=== PATIENT | female | born 1945 | race Caucasian/White ===

== ENCOUNTER 2017-10-25 16:09 | Emergency (ER) | payer MEDICARE, SELFPAY ==
[2017-10-25 16:19] VITALS: BP 153/78; PULSE 77; RESP 18; TEMP 36.7
--- NOTE | 2017-10-25 18:05 | W.ED.GENAD ---
Discharge Plan Disposition Patient Disposition: HOME Condition: Stable Discharge Details Chief Complaint: Nk/Back Pain Clinical Impression: Left sided sciatica Primary Care Provider: Christelle Armijo ED Provider: Prashant Forbes Home Meds and New Rx's Prescriptions: New cyclobenzaprine 10 mg tablet 10 mg PO TID PRN (Reason: muscle spasm) Qty: 10 RF: 0 hydrocodone-acetaminophen 5-325 mg tablet 1 tab PO Q6H PRN (Reason: pain) Qty: 8 RF: 0 prednisone 20 mg tablet 40 mg PO DAILY Qty: 8 RF: 0 Continue albuterol sulfate 2.5 MG/3 ML solution for nebulization 2.5 mg Inhalation PRN RF: 0 calcium carbonate 600 MG tablet 1,200 mg PO DAILY RF: 0 multivitamin [Daily Multiple] 1 EACH tablet 1 ea PO DAILY RF: 0 acetaminophen [Tylenol Extra Strength] 500 mg Tablet 1,000 mg PO QID PRNRF: 0 baclofen 10 mg Tablet 10 mg PO TID PRNRF: 0 calcium carbonate-vitamin D3 [Calcium 600 with Vitamin D3] 600 mg(1,500mg) -400 unit Capsule 2 tab PO DAILY RF: 0 Discharge Instructions Instructions: Sciatica (ED) Additional Instructions: Feel free to return to the emergency department for new or worsening symptoms otherwise perform activities as tolerated by discomfort and follow-up with your primary care provider in the next 5 days. If you have any fever, saddle anesthesia, inability to move extremity, or severe worsening of symptoms feel free to return for reassessment as well. Referrals: Christelle Armijo MD [Primary Care Provider] - 5 days (Follow-up with your primary care provider in 5 days for reassessment) Medical Decision Making MDM Narrative Medical decision making narrative: Patient presenting to the emergency department for chief complaint of back pain. Patient states previous pelvic fracture with injury years ago that aggravated her sciatica and that she intermittently gets sciatica. Patient states over the last 2 weeks she has had intermittent back pain but over the last 24 hours it has been significant and persistent not going away which it normally does after she takes her baclofen and acetaminophen. Physical exam shows positive right leg straight leg raise but patient states mostly sciatica running down the left leg. Exam is otherwise unremarkable for saddle anesthesia, loss of reflexes, patient afebrile, no change in bowel or bladder function. I do not feel that this is any signs of emergent back pain but patient's aggravation of her sciatica. Given that she has already been using baclofen and acetaminophen with no relief I did discuss with patient risk versus benefit of steroid burst, switching baclofen to Flexeril to see if that is more beneficial, and a limited prescription of narcotic pain medication. Patient agreed to these prescriptions and states clear understanding of risks versus benefit of these and recommendation for her to follow-up with her primary care provider in 5 days given that that would be the end of the steroid taper to see if she needs any further assistance. Patient encouraged to return for any new worsening symptoms which were thoroughly discussed. After discussion of diagnosis and plan of care patient states no further needs questions or concerns at this time and is agreement with plan. HPI - General Adult General Date/Time Provider Initiated Documentation: 10/25/17 17:02. Limitations to Documentation: no limitations. Information obtained by: patient. History of Present Illness 72 year old F presents to the emergency department with the chief complaint of Back pain, described as moderate, Quality is described as aching, and is localized to the back. Patient started experiencing this week(s) (2) and it has been intermittent. No relieving factors improve symptom(s), Movement worsens symptoms . Patient notes no other symptoms.. Patient did receive the following treatments prior to arrival, other Related Data Home Medications Medication Instructions Recorded Confirmed albuterol sulfate 2.5 mg INHALATION PRN 09/24/15 10/25/17 calcium carbonate 1,200 mg PO DAILY 09/24/15 10/25/17 multivitamin [Daily Multiple] 1 ea PO DAILY 08/22/17 10/25/17 acetaminophen [Tylenol Extra 1,000 mg PO QID PRN 10/25/17 10/25/17 Strength] baclofen 10 mg PO TID PRN 10/25/17 10/25/17 calcium carbonate-vitamin D3 2 tab PO DAILY 10/25/17 10/25/17 [Calcium 600 with Vitamin D3] Previous Rx's Medication Instructions Recorded cyclobenzaprine 10 mg PO TID PRN #10 tab 10/25/17 hydrocodone-acetaminophen 1 tab PO Q6H PRN #8 tab 10/25/17 prednisone 40 mg PO DAILY #8 tab 10/25/17 Allergies Allergy/AdvReac Type Severity Reaction Status Date / Time latex Allergy SKIN Unverified 10/25/17 16:25 REACTION CONTACT DERMATITIS aluminum [Aluminum] AdvReac Mild itchy Unverified 10/25/17 16:25 General Stated Complaint: Nk/Back Pain IMELDA: 3 Review of Systems Constitutional Denies body ache(s), Denies chills, Denies fever(s), Denies frequent falls and Denies weakness Cardiovascular Denies chest pain, Denies syncope and Denies dyspnea Respiratory Denies dyspnea Gastrointestinal Denies abdominal pain, Denies constipation, Denies fecal incontinence, Denies nausea and Denies vomiting Genitourinary Denies urinary incontinence Musculoskeletal Reports as per HPI Integumentary/Breasts Denies rash Neurologic Denies confusion, Denies syncope, Denies frequent falls, Denies sensory deficit and Denies weakness Psychiatric Denies confusion [facility] Medical History Adrenal mass, right Allergic rhinitis Asthma due to seasonal allergies Eczema Osteoarthritis of right knee Osteopenia Umbilical hernia Social History Smoking/Tobacco Use Status: Never Surgical History Colonoscopy - IV Sedation Ligation of fallopian tube Repair of umbilical hernia (10/13/15) Replacement of total knee joint Tonsillectomy and adenoidectomy Exam Const General: cooperative, no acute distress and not ill appearing Orientation: alert, awake and oriented x3 HENMT Mouth: moist mucous membranes Resp Effort & Inspection: normal respiratory effort, able to speak in complete sentences and no respiratory distress Cardio Rate: regular rate Rhythm: regular rhythm Back/Spine/Pelvis Back: no CVA tenderness, No erythema, No warmth and No back tenderness Thoracic/Lumbar Spine: pain with thoraco-lumbar ROM, No paraspinal tenderness, thoraco-lumbar ROM limited, No thoraco-lumbar spasm and straight leg raise positive (right) Pelvis: no pain with anterior-posterior compression and no pain with lateral compression Sacroiliac joints: on the right nontender and by passive hyperextension of lower ext and on the left nontender Sacrum: no tenderness Coccyx: no tenderness Skin General skin exam: no rashes or lesions noted Neuro General: alert, awake, oriented x3, moves all extremities and no focal motor deficits Sensory Exam: no sensory deficits noted DTR's: Rt Patellar: 1+, Lt Patellar: 1+, Rt Ankle: 1+ and Lt Ankle: 1+ Course Vital Signs Temperature 36.7 C 10/25/17 16:19 Pulse 77 10/25/17 16:19 Respiratory Rate 18 10/25/17 16:19 Blood Pressure 153/78 H 10/25/17 16:19 Temperature 36.7 C 10/25/17 16:19 Pulse 77 10/25/17 16:19 Respiratory Rate 18 10/25/17 16:19 Blood Pressure 153/78 H 10/25/17 16:19
--- NOTE | 2017-10-25 18:09 | ED.GENADUL_ITS ---
Discharge Plan Disposition Patient Disposition: HOME Condition: Stable Discharge Details Chief Complaint: Nk/Back Pain Clinical Impression: Left sided sciatica Primary Care Provider: Christelle Armijo ED Provider: Prashant Forbes Home Meds and New Rx's Prescriptions: New cyclobenzaprine 10 mg tablet 10 mg PO TID PRN (Reason: muscle spasm) Qty: 10 RF: 0 hydrocodone-acetaminophen 5-325 mg tablet 1 tab PO Q6H PRN (Reason: pain) Qty: 8 RF: 0 prednisone 20 mg tablet 40 mg PO DAILY Qty: 8 RF: 0 Continue albuterol sulfate 2.5 MG/3 ML solution for nebulization 2.5 mg Inhalation PRN RF: 0 calcium carbonate 600 MG tablet 1,200 mg PO DAILY RF: 0 multivitamin [Daily Multiple] 1 EACH tablet 1 ea PO DAILY RF: 0 acetaminophen [Tylenol Extra Strength] 500 mg Tablet 1,000 mg PO QID PRNRF: 0 baclofen 10 mg Tablet 10 mg PO TID PRNRF: 0 calcium carbonate-vitamin D3 [Calcium 600 with Vitamin D3] 600 mg(1,500mg) - 400 unit Capsule 2 tab PO DAILY RF: 0 Discharge Instructions Instructions: Sciatica (ED) Additional Instructions: Feel free to return to the emergency department for new or worsening symptoms otherwise perform activities as tolerated by discomfort and follow-up with your primary care provider in the next 5 days. If you have any fever, saddle anesthesia, inability to move extremity, or severe worsening of symptoms feel free to return for reassessment as well. Referrals: Christelle Armijo MD [Primary Care Provider] - 5 days (Follow-up with your primary care provider in 5 days for reassessment) Medical Decision Making MDM Narrative Medical decision making narrative: Patient presenting to the emergency department for chief complaint of back pain. Patient states previous pelvic fracture with injury years ago that aggravated her sciatica and that she intermittently gets sciatica. Patient states over the last 2 weeks she has had intermittent back pain but over the last 24 hours it has been significant and persistent not going away which it normally does after she takes her baclofen and acetaminophen. Physical exam shows positive right leg straight leg raise but patient states mostly sciatica running down the left leg. Exam is otherwise unremarkable for saddle anesthesia, loss of reflexes, patient afebrile , no change in bowel or bladder function. I do not feel that this is any signs of emergent back pain but patient's aggravation of her sciatica. Given that she has already been using baclofen and acetaminophen with no relief I did discuss with patient risk versus benefit of steroid burst, switching baclofen to Flexeril to see if that is more beneficial, and a limited prescription of narcotic pain medication. Patient agreed to these prescriptions and states clear understanding of risks versus benefit of these and recommendation for her to follow-up with her primary care provider in 5 days given that that would be the end of the steroid taper to see if she needs any further assistance. Patient encouraged to return for any new worsening symptoms which were thoroughly discussed. After discussion of diagnosis and plan of care patient states no further needs questions or concerns at this time and is agreement with plan. HPI - General Adult General Date/Time Provider Initiated Documentation: 10/25/17 17:02 . Limitations to Documentation: no limitations . Information obtained by: patient . History of Present Illness 72 year old F presents to the emergency department with the chief complaint of Back pain, described as moderate, Quality is described as aching, and is localized to the back. Patient started experiencing this week(s) (2) and it has been intermittent. No relieving factors improve symptom(s), Movement worsens symptoms . Patient notes no other symptoms.. Patient did receive the following treatments prior to arrival, other Related Data Home Medications Medication Instructions Recorded Confirmed albuterol sulfate 2.5 mg INHALATION PRN 09/24/15 10/25/17 calcium carbonate 1,200 mg PO DAILY 09/24/15 10/25/17 multivitamin [Daily Multiple] 1 ea PO DAILY 08/22/17 10/25/17 acetaminophen [Tylenol Extra 1,000 mg PO QID PRN 10/25/17 10/25/17 Strength] baclofen 10 mg PO TID PRN 10/25/17 10/25/17 calcium carbonate-vitamin D3 2 tab PO DAILY 10/25/17 10/25/17 [Calcium 600 with Vitamin D3] Previous Rx's Medication Instructions Recorded cyclobenzaprine 10 mg PO TID PRN #10 tab 10/25/17 hydrocodone-acetaminophen 1 tab PO Q6H PRN #8 tab 10/25/17 prednisone 40 mg PO DAILY #8 tab 10/25/17 Allergies Allergy/AdvReac Type Severity Reaction Status Date / Time latex Allergy SKIN Unverified 10/25/17 16:25 REACTION CONTACT DERMATITIS aluminum [Aluminum] AdvReac Mild itchy Unverified 10/25/17 16:25 General Stated Complaint: Nk/Back Pain IMELDA: 3 Review of Systems Constitutional Denies body ache(s), Denies chills, Denies fever(s), Denies frequent falls and Denies weakness Cardiovascular Denies chest pain, Denies syncope and Denies dyspnea Respiratory Denies dyspnea Gastrointestinal Denies abdominal pain, Denies constipation, Denies fecal incontinence, Denies nausea and Denies vomiting Genitourinary Denies urinary incontinence Musculoskeletal Reports as per HPI Integumentary/Breasts Denies rash Neurologic Denies confusion, Denies syncope, Denies frequent falls, Denies sensory deficit and Denies weakness Psychiatric Denies confusion [facility] Medical History Adrenal mass, right Allergic rhinitis Asthma due to seasonal allergies Eczema Osteoarthritis of right knee Osteopenia Umbilical hernia Social History Smoking/Tobacco Use Status: Never Surgical History Colonoscopy - IV Sedation Ligation of fallopian tube Repair of umbilical hernia (10/13/15) Replacement of total knee joint Tonsillectomy and adenoidectomy Exam Const General: cooperative, no acute distress and not ill appearing Orientation: alert, awake and oriented x3 HENMT Mouth: moist mucous membranes Resp Effort & Inspection: normal respiratory effort, able to speak in complete sentences and no respiratory distress Cardio Rate: regular rate Rhythm: regular rhythm Back/Spine/Pelvis Back: no CVA tenderness, No erythema, No warmth and No back tenderness Thoracic/Lumbar Spine: pain with thoraco-lumbar ROM, No paraspinal tenderness, thoraco-lumbar ROM limited, No thoraco-lumbar spasm and straight leg raise positive (right) Pelvis: no pain with anterior-posterior compression and no pain with lateral compression Sacroiliac joints: on the right nontender and by passive hyperextension of lower ext and on the left nontender Sacrum: no tenderness Coccyx: no tenderness Skin General skin exam: no rashes or lesions noted Neuro General: alert, awake, oriented x3, moves all extremities and no focal motor deficits Sensory Exam: no sensory deficits noted DTR's: Rt Patellar: 1+, Lt Patellar: 1+, Rt Ankle: 1+ and Lt Ankle: 1+ Course Vital Signs Temperature 36.7 C 10/25/17 16:19 Pulse 77 10/25/17 16:19 Respiratory Rate 18 10/25/17 16:19 Blood Pressure 153/78 H 10/25/17 16:19 Temperature 36.7 C 10/25/17 16:19 Pulse 77 10/25/17 16:19 Respiratory Rate 18 10/25/17 16:19 Blood Pressure 153/78 H 10/25/17 16:19
[2017-10-25] MEDS: predniSONE 20 MG TAB 40 MG PO (18:23)
[2017-10-25] MEDS: HYDROcodone 5/Acetaminophen 325 TAB PO (18:23)
[2017-10-25] MEDS: Cyclobenzaprine 10 MG TAB PO (18:24)
[2017-10-25 18:46] VITALS: BP 149/81; PULSE 84; RESP 14; TEMP 37.1; O2SAT 97
== END 2017-10-25 18:45 | disposition home or self-care (01) ==
LOC: ER 19:12
PROVIDERS: Emergency Provider Nurse Practitioner Family
DX: M54.42 Lumbago with sciatica, left side (principal)
CPT/HCPCS: 99283; J7512

== ENCOUNTER 2017-11-06 01:09 | Outpatient (CLI) | payer MEDICARE, SELFPAY ==
--- NOTE | 2017-11-06 09:48 | DI.MRI_ITS ---
SYMPTOMS/DIAGNOSIS: ACUTE SCIATICA, M54.30, LOWER BACK PAIN MRI OF THE LUMBAR SPINE: Routine noncontrast examination. There are no priors for comparison. The conus medullaris has a normal appearance and location. At L5-S1, there is a small diffuse disc bulge. There are hypertrophic changes of the facets. No significant central spinal canal stenosis is seen. There is mild right and moderate left neural foraminal stenosis present. At L4-L5, there are hypertrophic changes of the facets and ligamentum flavum. There is a diffuse disc bulge. There also is appears to be a left paracentral disc herniation, which compresses the left L5 nerve root. There is moderately severe central spinal canal stenosis noted. There is moderate right neural foraminal stenosis and mild to moderate left neural foraminal stenosis. At L3-L4, there is disc desiccation and a mild diffuse disc bulge. There are hypertrophic changes of the facets and ligamentum flavum resulting in mild narrowing of the central spinal canal. There is mild bilateral neural foraminal stenosis. At L2-L3, there is a diffuse disc bulge. No focal disc herniation is seen. Hypertrophic changes are seen at the facets and ligamentum flavum. Minimal narrowing of the central spinal canal is noted. There is mild bilateral neural foraminal stenosis. At L1-L2, there is no focal disc herniation, central spinal canal or neural foraminal stenosis. Apart from the degenerative endplate signal changes, marrow signal is within normal limits. IMPRESSION: 1. Left paracentral disc herniation at L4-L5 causing left lateral recess stenosis and compressing the left L5 nerve root. 2. Multilevel degenerative changes of the lumbar spine. The findings are most marked at the L4-L5 disc level where there is moderately severe central spinal canal stenosis and bilateral neural foraminal stenosis. Please see the above discussion for complete details.
== END 2017-11-06 01:29 ==
PROVIDERS: PCP Family Medicine; Visit Provider Family Medicine
DX: M54.30 Sciatica, unspecified side (principal); M54.5 Low back pain; M51.16 Intervertebral disc disorders with radiculopathy, lumbar region; M47.816 Spondylosis without myelopathy or radiculopathy, lumbar region; M48.07 Spinal stenosis, lumbosacral region
CPT/HCPCS: 72148

== ENCOUNTER 2018-06-09 15:30 | Emergency (ER) | payer MEDICARE, SELFPAY ==
[2018-06-09 15:32] VITALS: BP 212/82; PULSE 84; RESP 18; TEMP 36.6; O2SAT 97
--- NOTE | 2018-06-09 15:40 | W.ED.GENAD ---
Discharge Plan Disposition Patient Disposition: HOME Condition: Improving Discharge Details Chief Complaint: DentalOral Clinical Impression: Odontalgia Primary Care Provider: Mila Palacio ED Provider: Humberto Bass Home Meds and New Rx's Prescriptions: New penicillin V potassium 500 mg tablet 500 mg PO TID 10 Days Qty: 30 RF: 0 Continued albuterol sulfate 2.5 MG/3 ML solution for nebulization 2.5 mg Inhalation PRN RF: 0 calcium carbonate 600 MG tablet 1,200 mg PO DAILY RF: 0 multivitamin [Daily Multiple] 1 EACH tablet 1 ea PO DAILY RF: 0 acetaminophen [Tylenol Extra Strength] 500 mg Tablet 1,000 mg PO QID PRNRF: 0 calcium carbonate-vitamin D3 [Calcium 600 with Vitamin D3] 600 mg(1,500mg) -400 unit Capsule 2 tab PO DAILY RF: 0 Discharge Instructions Instructions: Toothache (ED) Additional Instructions: Warm, salt water gargles to assist in resolution of your infection. Take penicillin as prescribed. Follow-up with Dr. Palacio for routine care. May use Tylenol and/or ibuprofen as needed for discomfort. Return for worsening or any other acute concern Medical Decision Making 73-year-old female with a few dental caries and history of dental infections who presents from home with a day and half of right lower premolar pain. Most consistent with developing apical infection. We will placed on a course of penicillin. Patient understands outpatient management as well as follow-up and return precautions. She is stable for discharge to home at this time. HPI General Mode of arrival: ambulatory. Date/Time Provider Initiated Documentation: 06/09/18 15:31. Limitations to Documentation: no limitations. Information obtained by: patient. History of Present Illness 73 year old F presents to the emergency department with the chief complaint of Right lower jaw pain times a day and a half, described as moderate, Quality is described as aching, dull and constant, and is localized to the face and right. Patient reports no radiation. Patient started experiencing this day(s) and it has been constant. No relieving factors improve symptom(s), No exacerbating factors reported . Patient notes denies fever/chills, loss of appetite and malaise. Patient did receive the following treatments prior to arrival, NSAID, cold therapy and heat therapy Related Data Home Medications Medication Instructions Recorded Confirmed albuterol sulfate 2.5 mg INHALATION PRN 09/24/15 06/09/18 calcium carbonate 1,200 mg PO DAILY 09/24/15 06/09/18 multivitamin [Daily Multiple] 1 ea PO DAILY 08/22/17 06/09/18 acetaminophen [Tylenol Extra 1,000 mg PO QID PRN 10/25/17 10/25/17 Strength] calcium carbonate-vitamin D3 2 tab PO DAILY 10/25/17 06/09/18 [Calcium 600 with Vitamin D3] penicillin V potassium 500 mg PO TID 10 Days #30 tab 06/09/18 Previous Rx's Medication Instructions Recorded penicillin V potassium 500 mg PO TID 10 Days #30 tab 06/09/18 Allergies Allergy/AdvReac Type Severity Reaction Status Date / Time latex Allergy SKIN Unverified 06/09/18 15:36 REACTION CONTACT DERMATITIS aluminum [Aluminum] AdvReac Mild itchy Unverified 06/09/18 15:36 General Stated Complaint: DentalOral IMELDA: 4 Review of Systems Review of Systems 6 systems reviewed and otherwise negative [facility] Medical History Adrenal mass, right Allergic rhinitis Asthma due to seasonal allergies Eczema Osteoarthritis of right knee Osteopenia Umbilical hernia Surgical History Colonoscopy - IV Sedation Ligation of fallopian tube Repair of umbilical hernia (10/13/15) Replacement of total knee joint Tonsillectomy and adenoidectomy Social History Smoking/Tobacco Use Status: Never Alcohol Intake: never Drug use: Never Do you feel safe at home: Yes Do you feel safe in your relationship?: Yes Exam Narrative Exam Narrative: GEN: awake, alert, oriented 3. Pleasant, well groomed, interactive. HEAD: Normocephalic, atraumatic ENT: Mucous membranes moist, oropharynx with small dental caries -tender right lower premolar, External ear exam unremarkable EYES: PERRL, EOMI NECK: Full ROM, no MILKA, no menigismus CHEST/RESP: Nontender, clear to auscultation bilateral, no wheeze/rhonchi/rales CARDIOVASCULAR: RRR, no murmur, rub gianna. 2+ Rad pulse bilateral EXT: Full ROM, no edema, no rash Neuro: Grossly normal neurologic exam, conversant, interactive. Psych: Speech fluent, thoughts congruent, affect normal Course Vital Signs Temperature 36.6 C 06/09/18 15:32 Pulse 84 06/09/18 15:32 Respiratory Rate 18 06/09/18 15:32 Blood Pressure 212/82 H 06/09/18 15:32 Pulse Oximetry 97 06/09/18 15:32 Temperature 36.6 C 06/09/18 15:32 Temperature Source Skin 06/09/18 15:32 Pulse 84 06/09/18 15:32 Respiratory Rate 18 06/09/18 15:32 Blood Pressure 212/82 H 06/09/18 15:32 Blood Pressure Position Sitting 06/09/18 15:32 Pulse Oximetry 97 06/09/18 15:32 Oxygen Delivery Method Room Air 06/09/18 15:32 Oxygen Flow Rate 0 06/09/18 15:32 Pain Level 10 06/09/18 15:32
--- NOTE | 2018-06-09 15:44 | ED.GENADUL_ITS ---
Discharge Plan Disposition Patient Disposition: HOME Condition: Improving Discharge Details Chief Complaint: DentalOral Clinical Impression: Odontalgia Primary Care Provider: Mila Palacio ED Provider: Humberto Bass Home Meds and New Rx's Prescriptions: New penicillin V potassium 500 mg tablet 500 mg PO TID 10 Days Qty: 30 RF: 0 Continued albuterol sulfate 2.5 MG/3 ML solution for nebulization 2.5 mg Inhalation PRN RF: 0 calcium carbonate 600 MG tablet 1,200 mg PO DAILY RF: 0 multivitamin [Daily Multiple] 1 EACH tablet 1 ea PO DAILY RF: 0 acetaminophen [Tylenol Extra Strength] 500 mg Tablet 1,000 mg PO QID PRNRF: 0 calcium carbonate-vitamin D3 [Calcium 600 with Vitamin D3] 600 mg(1,500mg) - 400 unit Capsule 2 tab PO DAILY RF: 0 Discharge Instructions Instructions: Toothache (ED) Additional Instructions: Warm, salt water gargles to assist in resolution of your infection. Take penicillin as prescribed. Follow-up with Dr. Palacio for routine care. May use Tylenol and/or ibuprofen as needed for discomfort. Return for worsening or any other acute concern Medical Decision Making 73-year-old female with a few dental caries and history of dental infections who presents from home with a day and half of right lower premolar pain. Most consistent with developing apical infection. We will placed on a course of penicillin. Patient understands outpatient management as well as follow-up and return precautions. She is stable for discharge to home at this time. HPI General Mode of arrival: ambulatory . Date/Time Provider Initiated Documentation: 06/09/18 15:31 . Limitations to Documentation: no limitations . Information obtained by: patient . History of Present Illness 73 year old F presents to the emergency department with the chief complaint of Right lower jaw pain times a day and a half, described as moderate, Quality is described as aching, dull and constant, and is localized to the face and right. Patient reports no radiation. Patient started experiencing this day(s) and it has been constant. No relieving factors improve symptom(s), No exacerbating factors reported . Patient notes denies fever/chills, loss of appetite and malaise. Patient did receive the following treatments prior to arrival, NSAID, cold therapy and heat therapy Related Data Home Medications Medication Instructions Recorded Confirmed albuterol sulfate 2.5 mg INHALATION PRN 09/24/15 06/09/18 calcium carbonate 1,200 mg PO DAILY 09/24/15 06/09/18 multivitamin [Daily Multiple] 1 ea PO DAILY 08/22/17 06/09/18 acetaminophen [Tylenol Extra 1,000 mg PO QID PRN 10/25/17 10/25/17 Strength] calcium carbonate-vitamin D3 2 tab PO DAILY 10/25/17 06/09/18 [Calcium 600 with Vitamin D3] penicillin V potassium 500 mg PO TID 10 Days #30 tab 06/09/18 Previous Rx's Medication Instructions Recorded penicillin V potassium 500 mg PO TID 10 Days #30 tab 06/09/18 Allergies Allergy/AdvReac Type Severity Reaction Status Date / Time latex Allergy SKIN Unverified 06/09/18 15:36 REACTION CONTACT DERMATITIS aluminum [Aluminum] AdvReac Mild itchy Unverified 06/09/18 15:36 General Stated Complaint: DentalOral IMELDA: 4 Review of Systems Review of Systems 6 systems reviewed and otherwise negative [facility] Medical History Adrenal mass, right Allergic rhinitis Asthma due to seasonal allergies Eczema Osteoarthritis of right knee Osteopenia Umbilical hernia Surgical History Colonoscopy - IV Sedation Ligation of fallopian tube Repair of umbilical hernia (10/13/15) Replacement of total knee joint Tonsillectomy and adenoidectomy Social History Smoking/Tobacco Use Status: Never Alcohol Intake: never Drug use: Never Do you feel safe at home: Yes Do you feel safe in your relationship?: Yes Exam Narrative Exam Narrative: GEN: awake, alert, oriented 3. Pleasant, well groomed, interactive. HEAD: Normocephalic, atraumatic ENT: Mucous membranes moist, oropharynx with small dental caries -tender right lower premolar, External ear exam unremarkable EYES: PERRL, EOMI NECK: Full ROM, no MILKA, no menigismus CHEST/RESP: Nontender, clear to auscultation bilateral, no wheeze/rhonchi/rales CARDIOVASCULAR: RRR, no murmur, rub gianna. 2+ Rad pulse bilateral EXT: Full ROM, no edema, no rash Neuro: Grossly normal neurologic exam, conversant, interactive. Psych: Speech fluent, thoughts congruent, affect normal Course Vital Signs Temperature 36.6 C 06/09/18 15:32 Pulse 84 06/09/18 15:32 Respiratory Rate 18 06/09/18 15:32 Blood Pressure 212/82 H 06/09/18 15:32 Pulse Oximetry 97 06/09/18 15:32 Temperature 36.6 C 06/09/18 15:32 Temperature Source Skin 06/09/18 15:32 Pulse 84 06/09/18 15:32 Respiratory Rate 18 06/09/18 15:32 Blood Pressure 212/82 H 06/09/18 15:32 Blood Pressure Position Sitting 06/09/18 15:32 Pulse Oximetry 97 06/09/18 15:32 Oxygen Delivery Method Room Air 06/09/18 15:32 Oxygen Flow Rate 0 06/09/18 15:32 Pain Level 10 06/09/18 15:32
[2018-06-09 15:53] VITALS: BP 191/82
== END 2018-06-09 15:53 | disposition home or self-care (01) ==
PROVIDERS: Emergency Provider Emergency Medicine; PCP Family Medicine
DX: K08.89 Other specified disorders of teeth and supporting structures (principal)
CPT/HCPCS: 99283

== ENCOUNTER 2018-06-21 06:50 | Day surgery (SDC) | payer MEDICARE, SELFPAY ==
--- NOTE | 2018-06-20 20:10 | POEE_ITS ---
History of Present Illness Chief Complaint: Progressive decreased vision, left eye Narrative: Patient is a 73-year-old lady with history of diminished visual acuity in both eyes at both distance and near. She has significant difficulty driving due to glare from headlights. On examination she was noted to have bi lateral nuclear cataracts with significant anterior and posterior cortical cataracts. Best corrected vision measured 20/50 in the left eye. The option of cataract surgery was offered to patient and she felt she was symptomatic enough that she wished to proceed. NOTE: The Chief Complaint, HPI, Past Medical History, Past Surgical History, Family History, Social History, Medications, and complete Ophthalmic Exam with detailed Assessment and Plan have already been documented in the patient's outpatient ophthalmic record and are not covered again in detail here. COUNT INCLUDES THE [facility] Social History Smoking/Tobacco Use Status: Never Alcohol Intake: never Drug use: Never Substance use type: does not use Do you feel safe at home: Yes Do you feel safe in your relationship?: Yes Meds Home Medications Medication Instructions Recorded Confirmed Type albuterol sulfate 2.5 mg INHALATION PRN 09/24/15 06/18/18 History calcium carbonate 1,200 mg PO DAILY 09/24/15 06/18/18 History multivitamin [Daily Multiple] 1 ea PO DAILY 08/22/17 06/18/18 History acetaminophen [Tylenol Extra 1,000 mg PO QID PRN 10/25/17 06/18/18 History Strength] calcium carbonate-vitamin D3 2 tab PO DAILY 10/25/17 06/18/18 History [Calcium 600 with Vitamin D3] lisinopril 10 mg PO DAILY 06/09/18 06/18/18 History Allergies Allergy/AdvReac Type Severity Reaction Status Date / Time latex Allergy SKIN Unverified 06/18/18 12:07 REACTION CONTACT DERMATITIS aluminum [Aluminum] AdvReac Mild itchy Unverified 06/18/18 12:07 Exam OCULAR EXAM:: Most recent ocular examination is significant for best corrected vision of 20/30 OD, 20/50 OS. Intraocular pressure is 16 OU. Extraocular motility is normal. Slit-lamp exam exam shows pupils dilating to 5 mm OU. 1+ nuclear 3+ anterior and posterior cortical cataracts OU. Dilated funduscopic examination shows disc cupping of 0.3 OU with normal vessels, macula, peripheral retina and vitreous. BRIGHTNESS ACUITY TESTING (BAT):: Brightness acuity testing of the left eye off is 20/50. Low is 20/80. Medium is 20/80. On the high setting is 20/100. Assessment and Plan (1) Nuclear sclerotic cataract of left eye: Current visit: No Status: Acute Assessment: Visually significant cataract, left eye. Plan: Cataract extraction with intraocular lens implantation, left eye (2) Cortical cataract of left eye: Current visit: No Status: Acute Assessment: Visually significant cataract, left eye. Plan: Cataract extraction with intraocular lens implantation, left eye Note: NOTE:: The details of the planned surgery, including the risks, indications,limitations,expectations,outcome and possible complications were explained to the patient. The patient understands the complications including, but not limited to: infection, hemorrhage, posterior dislocation of the lens or nuclear fragments which may require the intervention of a vitreoretinal surgeon, possible loss of the eye, or from anesthetic complications. The patient has been made aware of the option of not having surgery, that vision following surgery may not be equal to that prior to surgery, and that the planned surgery may not achieve the intended results. Following this discussion, which the patient appeared to understand, the patient wishes to proceed with cataract surgery with lens implantation of the affected eye to improve and maximize vision.
--- NOTE | 2018-06-20 21:10 | PDOC.DSDIS_ITS ---
Discharge Plan Disposition Patient Disposition: HOME Condition: Stable Discharge Details Attending Provider: Jose G Bolton Primary Care Provider: Mila Palacio Home Meds and New Rx's Prescriptions: No Action albuterol sulfate 2.5 MG/3 ML solution for nebulization 2.5 mg Inhalation PRN RF: 0 calcium carbonate 600 MG tablet 1,200 mg PO DAILY RF: 0 multivitamin [Daily Multiple] 1 EACH tablet 1 ea PO DAILY RF: 0 lisinopril 10 mg Tablet 10 mg PO DAILY RF: 0 acetaminophen [Tylenol Extra Strength] 500 mg Tablet 1,000 mg PO QID PRNRF: 0 calcium carbonate-vitamin D3 [Calcium 600 with Vitamin D3] 600 mg(1,500mg) - 400 unit Capsule 2 tab PO DAILY RF: 0 Discharge Instructions Stand Alone Forms: Post-op Topical Cataract, Winifred Walker (DSU) Discharge Orders Discharge Orders: Discharge Order (Routine); Ordered 06/21/18 Ordered By: Jose G Bolton DS: Diagnosis Discharge Diagnosis (1) Nuclear sclerotic cataract of left eye: Status: Resolved (2) Cortical cataract of left eye: Status: Resolved (3) Status post cataract extraction and insertion of intraocular lens of left eye: Status: Chronic
[2018-06-21 07:05] VITALS: BP 159/88; PULSE 74; RESP 16; TEMP 35.8; O2SAT 95
[2018-06-21] MEDS: Tetracaine 0.5% 4 ML BTL OS ×4 (07:20→08:17)
[2018-06-21] MEDS: Tropicam./Phenyleph. (1/2.5%) 5 ML BTL OS ×3 (07:20→07:31)
[2018-06-21] MEDS: Lidocaine 2% Jelly 6 ML SYR (08:24)
[2018-06-21] MEDS: Lidocaine 1% Pres-Free 5 ML VIAL (08:24)
[2018-06-21] MEDS: Balanced Salt Soln.-PLUS 500 ML BAG (08:24)
[2018-06-21] MEDS: Trypan Blue 0.06% 0.5 ML SYR (08:30)
[2018-06-21] MEDS: Povidone-Iodine Ophth 30 ML BTL (08:40)
[2018-06-21 08:45] VITALS: BP 165/79; PULSE 70; RESP 18; TEMP 35.5; O2SAT 96
--- NOTE | 2018-06-21 08:55 | ROE_ITS ---
Date of service: 06/21/18 Time of Service: 08:54 Operative Note PRE-OP DIAGNOSIS: Cataract, left eye, with poor red reflex POST-OP DIAGNOSIS: same PROCEDURE: Cataract extraction using phacoemulsification with intraocular lens implant, left eye, using capsular staining with Vision Blue SURGEON: Jose G Bolton ANESTHESIA: MAC (with local sub-tenon's anesthetic injection) COMPLICATIONS: None Patient was transported to: same day Patient's condition: stable Implants: Anselmo [employer] / [employer] Tecnis [id number] Indications: Progressive decreased vision due to cataract, left eye, with poor red reflex Procedure Description: CATARACT SURGERY OPERATIVE REPORT PREOPERATIVE DIAGNOSIS: 1. Nuclear/cortical cataract, left eye 2. Poor red reflex secondary to #1 POSTOPERATIVE DIAGNOSIS: Same OPERATION: 1. Cataract extraction using phacoemulsification with posterior chamber intraocular lens implant, left eye. 2. Capsular staining with Vision Blue IOL: IOL [employer] Assistant/Model: Anselmo [employer] Anselmo / MINNIE Tecnis [id number] IOL Power: + 13.50 diopters IOL Serial Number: [id number] Optic Diameter: 6.0 mm Haptic/Overall Diameter: 13.0 mm PHACO INFO: [employer] Vision System with OZil and Active Fluidics Cumulative Dispersed Energy (CDE): 6.46 seconds SURGEON: Jose G Bolton MD, CATHY ANESTHESIA: [facility] (MAC), with local sub-tenon's anesthetic infiltration COMPLICATIONS: None SPECIMENS: None INDICATIONS FOR PROCEDURE: The patient is a 73-year-old lady with history of myopia who has developed a symptomatic nuclear and cortical cataract of the left eye. She is significantly symptomatically she desires cataract surgery and attempt to improve and maximize her vision. PROCEDURE: The correct surgical eye was identified and marked as the left eye and the pupil was dilated in the preoperative area using mydriatics and cycloplegics. The dilated pupil size was 7.0 mm. Oral sedation was administered in the form of an Imprimis MKO Melt (midazolam 3mg/ketamine 25mg/ondansetron 2mg). The patient was brought to the operating room where cardiopulmonary monitoring was instituted and surgical time-out was performed, confirming the correct operative eye and IOL power. Topical anesthesia was administered and ophthalmic povidone-iodine 5% was instilled into the conjunctival fornices. Lidocaine gel was applied to the cornea and the thee-ocular area was prepped with Betadine 10% solution and draped in the usual sterile fashion for intraocular surgery, including an aperture drape. A Tegaderm transparent film dressing was cut in half and used to cover the lashes and lid margins. Care was taken to sequester the lashes and lid margins under the Tegaderm dressing. A lid speculum was placed between the lids of the operative eye and the Johnnie-Lisa operating microscope was maneuvered into position. Maral scissors were then used to make a conjunctival buttonhole approximately 6mm posterior to the limbus in the inferonasal quadrant. Blunt dissection was carried out to expose bare sclera, and a blunt-tipped sub-tenon?s anesthesia cannula was introduced and passed posteriorly along the globe where non- preserved plain lidocaine was injected into posterior sub-Tenon?s space. A sideport knife was used to make a paracentesis port at the 12:00 position. Air was injected into the anterior chamber, followed by Vision Blue, which was painted over the anterior capsule and then irrigated out using BSS. The anterior chamber was filled with Healon GV. A 2.4mm keratome knife was used to create a half-thickness groove at the limbus and then to construct a three-plane near-clear corneal tunnel extending 2.0mm into clear cornea at the 3:00 position. A flap was raised on the anterior capsule and capsulorhexis forceps were used to complete a continuous curvilinear capsulorhexis of 5.0 mm. Balanced salt solution was then used to perform cortical cleaving hydrodissection and nuclear hydrodelineation until the lens could be freely rotated within the capsular bag. The lens nucleus was then disassembled and removed within the capsular bag and iris plane using phacoemulsification. Residual cortical material was removed using the 45-degree angled silicone I/A tip with 0.3mm port. The posterior capsule was carefully polished to remove as much residual lens epithelial cells as safely possible. The capsular bag was then inflated and the anterior chamber deepened with viscoelastic. The lens implant described above was inserted into the capsular bag using the MINNIE Roggen Injector. A Kuglen hook was used to dial the IOL into position. Residual viscoelastic was then removed first from posterior to the IOL, then from the anterior chamber using the I/A handpiece. The lens implant was noted to center nicely within the capsular bag. The incisions were stromally hydrated, and the anterior chamber was reformed using BSS. Then 0.4cc of moxifloxacin 1.5mg/ml were injected into the capsular bag and anterior chamber. The incisions were checked with a Weck spear and found to be secure. Several drops of ophthalmic povidone-iodine 5% were then applied to the eye followed by two drops of Imprimis combination gatifloxacin/dexamethasone solution. The drapes were removed and a clear plastic protective eye shield was placed over the eye. The patient was then returned to Same Day Surgery in stable condition.
== END 2018-06-21 09:25 | disposition home or self-care (01) ==
LOC: SUR 06:52
PROVIDERS: PCP Family Medicine; Visit Provider Ophthalmology
PROC: (CPT 66982; principal; 2018-06-21 08:30)
DX: H25.812 Combined forms of age-related cataract, left eye (principal); H35.89 Other specified retinal disorders
CPT/HCPCS: 66982; V2632

== ENCOUNTER 2018-07-05 06:45 | Day surgery (SDC) | payer MEDICARE, SELFPAY ==
--- NOTE | 2018-07-04 08:03 | W.PIPPEYE ---
History of Present Illness Chief Complaint: Progressive decreased vision, right eye Narrative: The patient is a 73-year-old lady with history of aggressive decreased vision in both eyes at both distance and near. She has significant difficulty with driving due to glare from headlights. On examination she was noted to have bilateral nuclear and cortical cataracts with best corrected vision of 20/30 OD, 20/50 OS with significant glare disability. He underwent cataract surgery in the left eye on 06/21/2018. Postoperatively she has regained uncorrected vision of 20/20 in the left eye. She now presents for cataract surgery in the right eye. NOTE: The Chief Complaint, HPI, Past Medical History, Past Surgical History, Family History, Social History, Medications, and complete Ophthalmic Exam with detailed Assessment and Plan have already been documented in the patient's outpatient ophthalmic record and are not covered again in detail here. [facility] Medical History H/O laminectomy (Acute) Adrenal mass, right Allergic rhinitis Asthma due to seasonal allergies Eczema Osteoarthritis of right knee Osteopenia Umbilical hernia Surgical History Status post cataract extraction and insertion of intraocular lens of left eye (Chronic 06/21/18) Colonoscopy - IV Sedation Ligation of fallopian tube Repair of umbilical hernia (10/13/15) Replacement of total knee joint Tonsillectomy and adenoidectomy Social History Smoking/Tobacco Use Status: Never Alcohol Intake: never Drug use: Never Substance use type: does not use Do you feel safe at home: Yes Do you feel safe in your relationship?: Yes Meds Home Medications Medication Instructions Recorded Confirmed Type albuterol sulfate 2.5 mg INHALATION PRN 09/24/15 06/18/18 History calcium carbonate 1,200 mg PO DAILY 09/24/15 06/09/18 History multivitamin [Daily Multiple] 1 ea PO DAILY 08/22/17 06/21/18 History acetaminophen [Tylenol Extra 1,000 mg PO QID PRN 10/25/17 06/18/18 History Strength] calcium carbonate-vitamin D3 2 tab PO DAILY 10/25/17 06/21/18 History [Calcium 600 with Vitamin D3] lisinopril 10 mg PO DAILY 06/09/18 06/21/18 History Allergies Allergy/AdvReac Type Severity Reaction Status Date / Time latex Allergy SKIN Unverified 06/21/18 07:11 REACTION CONTACT DERMATITIS aluminum [Aluminum] AdvReac Mild itchy Unverified 06/21/18 07:11 Exam OCULAR EXAM:: Most recent ocular examination is significant for best corrected vision of 20/30 OD, uncorrected vision of 20/20 OS. Intraocular pressure is 16 OD, 15 OS. Extraocular motility is normal. Pupils equal, round, and reactive without afferent pupillary defect slit-lamp examination is significant for pupils dilating to 5 mm OU. 1+ nuclear with 3+ anterior and posterior cortical cataract in the right eye. Well-positioned PCIOL OS with clear posterior capsule. Dilated funduscopic examination shows disc cupping of 0.3 OU with good color. The optic nerves have good perfusion and normal color. The retinal vasculature is normal without significant tortuosity or abnormality. The maculas are normal in appearance with normal contour and foveal reflex appropriate for age. The peripheral retina and vitreous are normal. BRIGHTNESS ACUITY TESTING (BAT):: Brightness acuity testing of the right eye off is 20/30. Low is 20/30. Medium is 20/40. On the high setting is 20/60. Assessment and Plan (1) Nuclear sclerotic cataract of right eye: Current visit: No Status: Acute Assessment: Visually significant cataract, right eye. Plan: Cataract extraction with intraocular lens implantation, right eye (2) Cortical cataract of right eye: Current visit: No Status: Acute Assessment: Visually significant cataract, right eye. Plan: Cataract extraction with intraocular lens implantation, right eye Note: NOTE:: The details of the planned surgery, including the risks, indications,limitations,expectations,outcome and possible complications were explained to the patient. The patient understands the complications including, but not limited to: infection, hemorrhage, posterior dislocation of the lens or nuclear fragments which may require the intervention of a vitreoretinal surgeon, possible loss of the eye, or from anesthetic complications. The patient has been made aware of the option of not having surgery, that vision following surgery may not be equal to that prior to surgery, and that the planned surgery may not achieve the intended results. Following this discussion, which the patient appeared to understand, the patient wishes to proceed with cataract surgery with lens implantation of the affected eye to improve and maximize vision.
[2018-07-05] MEDS: Tetracaine 0.5% 4 ML BTL OD ×4 (07:00→08:18)
[2018-07-05] MEDS: Tropicam./Phenyleph. (1/2.5%) 5 ML BTL OD ×3 (07:00→07:15)
[2018-07-05 07:06] VITALS: BP 128/82; PULSE 84; RESP 18; TEMP 35.9; O2SAT 97
--- NOTE | 2018-07-05 07:19 | PDOC.DSDIS_ITS ---
Discharge Plan Disposition Patient Disposition: HOME Condition: Stable Discharge Details Attending Provider: Jose G Bolton Primary Care Provider: Mila Palacio Home Meds and New Rx's Prescriptions: No Action albuterol sulfate 2.5 MG/3 ML solution for nebulization 2.5 mg Inhalation PRN RF: 0 calcium carbonate 600 MG tablet 1,200 mg PO DAILY RF: 0 multivitamin [Daily Multiple] 1 EACH tablet 1 ea PO DAILY RF: 0 lisinopril 10 mg Tablet 10 mg PO DAILY RF: 0 acetaminophen [Tylenol Extra Strength] 500 mg Tablet 1,000 mg PO QID PRNRF: 0 calcium carbonate-vitamin D3 [Calcium 600 with Vitamin D3] 600 mg(1,500mg) - 400 unit Capsule 2 tab PO DAILY RF: 0 Discharge Instructions Stand Alone Forms: Post-op Topical Cataract, Winifred Walker ([facility]U) Discharge Orders Discharge Orders: Discharge Order (Routine); Ordered 07/05/18 Ordered By: Jose G Bolton DS: Diagnosis Discharge Diagnosis (1) Nuclear sclerotic cataract of right eye: Status: Resolved (2) Cortical cataract of right eye: Status: Resolved (3) Status post cataract extraction and insertion of intraocular lens of right eye: Status: Chronic
[2018-07-05] MEDS: Povidone-Iodine Ophth 30 ML BTL ×2 (08:18→08:28)
[2018-07-05] MEDS: Lidocaine 2% Jelly 6 ML SYR (08:18)
[2018-07-05] MEDS: Balanced Salt Soln.-PLUS 500 ML BAG (08:25)
[2018-07-05] MEDS: Lidocaine 1% Pres-Free 5 ML VIAL (08:26)
[2018-07-05] MEDS: Trypan Blue 0.06% 0.5 ML SYR (08:28)
--- NOTE | 2018-07-05 08:48 | W.PM.OP ---
Date of service: 07/05/18 Time of Service: 08:48 Operative Note PRE-OP DIAGNOSIS: Cataract, right eye, with poor red reflex PROCEDURE: Cataract extraction using phacoemulsification with intraocular lens implantation, right eye, using capsular staining with Vision Blue SURGEON: Jose G Bolton ANESTHESIA: MAC (with local sub-tenon's anesthetic injection) PATHOLOGY: none sent COMPLICATIONS: None Patient was transported to: same day Patient's condition: stable Implants: Anselmo and Anselmo / [employer] Tecnis [id number] Indications: Progressive visual loss due to cataract, right eye Procedure Description: CATARACT SURGERY OPERATIVE REPORT PREOPERATIVE DIAGNOSIS: 1. Nuclear/cortical cataract, right eye 2. Poor red reflex secondary to #1 POSTOPERATIVE DIAGNOSIS: Same OPERATION: 1. Cataract extraction using phacoemulsification with posterior chamber intraocular lens implant, right eye. 2. Capsular staining with Vision Blue IOL: IOL Bakery Decorator/Model: Anselmo & Anselmo / MINNIE Tecnis [id number] IOL Power: + 14.50 diopters IOL Serial Number: [id number] Optic Diameter: 6.0mm Haptic/Overall Diameter: 13.0mm PHACO INFO: Dawson Huddlebuyurion Vision System with OZil and Active Fluidics Cumulative Dispersed Energy (CDE): 4.56 seconds SURGEON: Jose G Bolton MD, CATHY ANESTHESIA: Monitored Anesthesia Care (MAC), with local sub-tenon's anesthetic infiltration COMPLICATIONS: None SPECIMENS: None INDICATIONS FOR PROCEDURE: Patient is a 73-year-old lady with history of high myopia who has developed significant bilateral nuclear and cortical cataracts. She has already undergone cataract surgery in the left eye on 06/21/2018 and is doing well postoperatively. She now presents for cataract surgery of the right eye. PROCEDURE: The correct surgical eye was identified and marked as the right eye and the pupil was dilated in the preoperative area using mydriatics and cycloplegics. The dilated pupil size was 7.0 mm. Oral sedation was administered in the form of an Imprimis MKO Melt (midazolam 3mg/ketamine 25mg/ondansetron 2mg). The patient was brought to the operating room where cardiopulmonary monitoring was instituted and surgical time-out was performed, confirming the correct operative eye and IOL power. Topical anesthesia was administered and ophthalmic povidone-iodine 5% was instilled into the conjunctival fornices. Lidocaine gel was applied to the cornea and the thee-ocular area was prepped with Betadine 10% solution and draped in the usual sterile fashion for intraocular surgery, including an aperture drape. A Tegaderm transparent film dressing was cut in half and used to cover the lashes and lid margins. Care was taken to sequester the lashes and lid margins under the Tegaderm dressing. A lid speculum was placed between the lids of the operative eye and the Johnnie-Lisa operating microscope was maneuvered into position. Maral scissors were then used to make a conjunctival buttonhole approximately 6mm posterior to the limbus in the inferonasal quadrant. Blunt dissection was carried out to expose bare sclera, and a blunt-tipped sub-tenon?s anesthesia cannula was introduced and passed posteriorly along the globe where non-preserved plain lidocaine was injected into posterior sub-Tenon?s space. A sideport knife was used to make a paracentesis port at the 7:00 position. Air was injected into the anterior chamber, followed by Vision Blue, which was painted over the anterior capsule and then irrigated out with BSS. The anterior chamber was filled with Healon GV. A 2.4mm keratome knife was used to create a half-thickness groove at the limbus and then to construct a three-plane near-clear corneal tunnel extending 2.0mm into clear cornea at the 10:00 position. A flap was raised on the anterior capsule and capsulorhexis forceps were used to complete a continuous curvilinear capsulorhexis of 4.8 mm. Balanced salt solution was then used to perform cortical cleaving hydrodissection and nuclear hydrodelineation until the lens could be freely rotated within the capsular bag. The lens nucleus was then disassembled and removed within the capsular bag and iris plane using phacoemulsification. Residual cortical material was removed using the I/A handpiece. The posterior capsule was carefully polished to remove as much residual lens epithelial cells as safely possible. The capsular bag was then inflated and the anterior chamber deepened with viscoelastic. The lens implant described above was inserted into the capsular bag using the MINNIE [place] Injector. A Kuglen hook was used to dial the IOL into position. Residual viscoelastic was then removed first from posterior to the IOL, then from the anterior chamber using the I/A handpiece. The underside of the anterior capsule was also vacuumed extensively. The lens implant was noted to center nicely within the capsular bag. The incisions were stromally hydrated, and the anterior chamber was reformed using BSS. Then 0.4cc of moxifloxacin 1.5mg/ml were injected into the capsular bag and anterior chamber. The incisions were checked with a Weck spear and found to be secure. Several drops of ophthalmic povidone-iodine 5% were then applied to the eye followed by two drops of Imprimis combination prednisolone/gatifloxacin/bromfenac solution. The drapes were removed and a clear plastic protective eye shield was placed over the eye. The patient was then returned to Same Day Surgery in stable condition.
--- NOTE | 2018-07-05 08:51 | ROE_ITS ---
Date of service: 07/05/18 Time of Service: 08:48 Operative Note PRE-OP DIAGNOSIS: Cataract, right eye, with poor red reflex PROCEDURE: Cataract extraction using phacoemulsification with intraocular lens implantation, right eye, using capsular staining with Vision Blue SURGEON: Jose G Bolton ANESTHESIA: MAC (with local sub-tenon's anesthetic injection) PATHOLOGY: none sent COMPLICATIONS: None Patient was transported to: same day Patient's condition: stable Implants: Anselmo and Anselmo / [employer] Tecnis [id number] Indications: Progressive visual loss due to cataract, right eye Procedure Description: CATARACT SURGERY OPERATIVE REPORT PREOPERATIVE DIAGNOSIS: 1. Nuclear/cortical cataract, right eye 2. Poor red reflex secondary to #1 POSTOPERATIVE DIAGNOSIS: Same OPERATION: 1. Cataract extraction using phacoemulsification with posterior chamber intraocular lens implant, right eye. 2. Capsular staining with Vision Blue IOL: IOL Patient Safety Manager/Model: Anselmo & Anselmo / MINNIE Tecnis [id number] IOL Power: + 14.50 diopters IOL Serial Number: [id number] Optic Diameter: 6.0mm Haptic/Overall Diameter: 13.0mm PHACO INFO: Dawson YellowBrckurion Vision System with OZil and Active Fluidics Cumulative Dispersed Energy (CDE): 4.56 seconds SURGEON: Jose G Bolton MD, CATHY ANESTHESIA: Monitored Anesthesia Care (MAC), with local sub-tenon's anesthetic infiltration COMPLICATIONS: None SPECIMENS: None INDICATIONS FOR PROCEDURE: Patient is a 73-year-old lady with history of high myopia who has developed significant bilateral nuclear and cortical cataracts. She has already undergone cataract surgery in the left eye on 06/21/2018 and is doing well postoperatively. She now presents for cataract surgery of the right eye. PROCEDURE: The correct surgical eye was identified and marked as the right eye and the pupil was dilated in the preoperative area using mydriatics and cycloplegics. The dilated pupil size was 7.0 mm. Oral sedation was administered in the form of an Imprimis MKO Melt (midazolam 3mg/ketamine 25mg/ondansetron 2mg). The patient was brought to the operating room where cardiopulmonary monitoring was instituted and surgical time-out was performed, confirming the correct operative eye and IOL power. Topical anesthesia was administered and ophthalmic povidone-iodine 5% was instilled into the conjunctival fornices. Lidocaine gel was applied to the cornea and the thee-ocular area was prepped with Betadine 10% solution and draped in the usual sterile fashion for intraocular surgery, including an aperture drape. A Tegaderm transparent film dressing was cut in half and used to cover the lashes and lid margins. Care was taken to sequester the lashes and lid margins under the Tegaderm dressing. A lid speculum was placed between the lids of the operative eye and the Johnnie-Lisa operating microscope was maneuvered into position. Maral scissors were then used to make a conjunctival buttonhole approximately 6mm posterior to the limbus in the inferonasal quadrant. Blunt dissection was carried out to expose bare sclera, and a blunt-tipped sub-tenon?s anesthesia cannula was introduced and passed posteriorly along the globe where non- preserved plain lidocaine was injected into posterior sub-Tenon?s space. A sideport knife was used to make a paracentesis port at the 7:00 position. Air was injected into the anterior chamber, followed by Vision Blue, which was painted over the anterior capsule and then irrigated out with BSS. The anterior chamber was filled with Healon GV. A 2.4mm keratome knife was used to create a half-thickness groove at the limbus and then to construct a three-plane near- clear corneal tunnel extending 2.0mm into clear cornea at the 10:00 position. A flap was raised on the anterior capsule and capsulorhexis forceps were used to complete a continuous curvilinear capsulorhexis of 4.8 mm. Balanced salt solution was then used to perform cortical cleaving hydrodissection and nuclear hydrodelineation until the lens could be freely rotated within the capsular bag. The lens nucleus was then disassembled and removed within the capsular bag and iris plane using phacoemulsification. Residual cortical material was removed using the I/A handpiece. The posterior capsule was carefully polished to remove as much residual lens epithelial cells as safely possible. The capsular bag was then inflated and the anterior chamber deepened with viscoelastic. The lens implant described above was inserted into the capsular bag using the MINNIE [place] Injector. A Kuglen hook was used to dial the IOL into position. Residual viscoelastic was then removed first from posterior to the IOL, then from the anterior chamber using the I/A handpiece. The underside of the anterior capsule was also vacuumed extensively. The lens implant was noted to center nicely within the capsular bag. The incisions were stromally hydrated, and the anterior chamber was reformed using BSS. Then 0.4cc of moxifloxacin 1.5mg/ml were injected into the capsular bag and anterior chamber. The incisions were checked with a Weck spear and found to be secure. Several drops of ophthalmic povidone-iodine 5% were then applied to the eye followed by two drops of Imprimis combination prednisolone/gatifloxacin/bromfenac solution. The drapes were removed and a clear plastic protective eye shield was placed over the eye. The patient was then returned to Same Day Surgery in stable condition.
[2018-07-05 09:12] VITALS: BP 119/83; PULSE 80; RESP 16; TEMP 36.3; O2SAT 94
== END 2018-07-05 09:25 | disposition home or self-care (01) ==
PROVIDERS: PCP Family Medicine; Visit Provider Ophthalmology
PROC: (CPT 66982; principal; 2018-07-05 08:30)
DX: H25.811 Combined forms of age-related cataract, right eye (principal); H35.89 Other specified retinal disorders; Z98.42 Cataract extraction status, left eye; Z96.1 Presence of intraocular lens
CPT/HCPCS: 66982; V2632

== ENCOUNTER 2019-11-22 08:45 | Emergency (ER) | payer MEDICARE, SELFPAY ==
[2019-11-22 08:49] VITALS: BP 130/75; PULSE 93; RESP 20; TEMP 36.5; O2SAT 96
--- NOTE | 2019-11-22 09:00 | DI.RAD_ITS ---
EXAM: XR PORTABLE CHEST AP CLINICAL HISTORY: Cough TECHNIQUE: 2D digital imaging was performed. COMPARISON: No exams were available for comparison FINDINGS: MEDIASTINUM: Normal. HEART: Normal. PULMONARY VASCULATURE: Normal. LUNGS: There are increased lung markings at the left cardiophrenic angle which may represent a develo ping infiltrate. The lungs are otherwise clear. PLEURAL SPACE: No pleural effusion or pneumothorax. BONE:Degenerative changes in the spine. OTHER FINDINGS:Normal. IMPRESSION: Lung markings in the left cardiophrenic angle which may represent developing infiltrate. DATA REPOSITORY: RADIATION DOSE DELIVERED:
--- NOTE | 2019-11-22 09:03 | ED.GENADUL_ITS ---
Discharge Plan Disposition Patient Disposition: HOME Condition: Stable Discharge Details Clinical Impression: Laryngitis, acute, Pneumonia Primary Care Provider: Mila Palacio ED Provider: Angelita Macias Home Meds and New Rx's Prescriptions: New azithromycin [Zithromax Z-Mich] 250 mg tablet See Rx Instructions .ROUTE .COMPLEX Qty: 6 RF: 0 albuterol sulfate 90 mcg/actuation HFA aerosol inhaler 2 puff inhalation QID PRN (Reason: shortness of breath or wheezing) Qty: 8 RF: 0 Continued albuterol sulfate 2.5 MG/3 ML solution for nebulization 2.5 mg Inhalation PRN RF: 0 calcium carbonate 600 MG tablet 1,200 mg PO DAILY RF: 0 multivitamin [Daily Multiple] 1 EACH tablet 1 ea PO DAILY RF: 0 lisinopril 10 mg Tablet 10 mg PO DAILY RF: 0 acetaminophen [Tylenol Extra Strength] 500 mg Tablet 1,000 mg PO QID PRNRF: 0 calcium carbonate-vitamin D3 [Calcium 600 with Vitamin D3] 600 mg(1,500mg) - 400 unit Capsule 2 tab PO DAILY RF: 0 Discharge Instructions Instructions: Laryngitis (ED), Pneumonia (ED) Additional Instructions: Follow up with primary care provider in 3-5 days. Return to ED sooner if any worsening or concerns. Increase oral fluids. Please take Tylenol or Ibuprofen with food every 4-6 hours as needed for pain and swelling. Gargle with warm salt water up to 3 times daily as needed. Take medications as directed. Return to the ED for any worsening shortness of breath, fever or concerns. Stand Alone Forms: Work Release Referrals: Mila Palacio [Primary Care Provider] - Discharge Data Discharge Date/Time-TO BE ENTERED AT DEPARTURE: 11/22/19 10:25 Medical Decision Making 74-year-old female presents the ED with chief complaint of sore throat and loss of voice. This has worsened over the last few days. She has a history of laryngitis. She reports being around cigarette smoke recently which is triggering her symptoms. She denies fever. She does endorse cough with productive yellow sputum. On initial exam she does have erythemic posterior pharynx, tonsils are 0 bilaterally she does have a history of tonsillectomy and adenoidectomy. She is a non-smoker. Rapid strep swab ordered, dexamethasone 10 mg p.o., Tylenol 650 mg p.o., and portable chest x-ray ordered to rule out pneumonia. Exam: XR Chest, 1 View Exam date and time: 11/22/2019 9:32 AM Age: 74 years old Clinical indication: Other: Cough TECHNIQUE: Imaging protocol: XR of the chest Views: 1 view. COMPARISON: No relevant prior studies available. FINDINGS: Lungs: Lungs are clear except for some increased markings at the left heart border. Pleural space: Unremarkable. No pleural effusion. No pneumothorax. Heart/Mediastinum: Heart size is within normal limits. Bones/joints: Mild curvature of the spine suggestive scoliosis. IMPRESSION: Increase in lung markings at the left cardiophrenic angle which could represent a early infiltrate. Thank you for allowing us to participate in the care of your patient. Dictated and Authenticated by: Ernestine Churchill MD Based on questionable x-ray possible early infiltrate will place patient on antibiotics. Discussed results with patient who verbalized understanding. Discussed home care and strict follow-up. HPI General Mode of arrival: ambulatory . Date/Time Provider Initiated Documentation: 11/22/19 08:48 . Limitations to Documentation: no limitations . Information obtained by: patient . HPI Narrative: 74-year-old female presents the ED with chief complaint of sore throat and loss of voice. This has worsened over the last few days. She has a history of laryngitis. She reports being around cigarette smoke recently which is triggering her symptoms. She denies fever. She does endorse cough with productive yellow sputum. On initial exam she does have erythemic posterior pharynx, tonsils are 0 bilaterally she does have a history of tonsillectomy and adenoidectomy. She is a non-smoker. Related Data Home Medications Medication Instructions Recorded Confirmed albuterol sulfate 2.5 mg INHALATION PRN 09/24/15 11/22/19 calcium carbonate 1,200 mg PO DAILY 09/24/15 11/22/19 multivitamin [Daily Multiple] 1 ea PO DAILY 08/22/17 11/22/19 acetaminophen [Tylenol Extra 1,000 mg PO QID PRN 10/25/17 11/22/19 Strength] calcium carbonate-vitamin D3 2 tab PO DAILY 10/25/17 11/22/19 [Calcium 600 with Vitamin D3] lisinopril 10 mg PO DAILY 06/09/18 11/22/19 albuterol sulfate 2 puff INHALATION QID PRN #8 g 11/22/19 azithromycin [Zithromax Z-Mich] See Rx Instructions .ROUTE 11/22/19 .COMPLEX #6 tab Previous Rx's Medication Instructions Recorded albuterol sulfate 2 puff INHALATION QID PRN #8 g 11/22/19 azithromycin [Zithromax Z-Mich] See Rx Instructions .ROUTE 11/22/19 .COMPLEX #6 tab Allergies Allergy/AdvReac Type Severity Reaction Status Date / Time latex Allergy SKIN Unverified 11/22/19 08:51 REACTION CONTACT DERMATITIS aluminum [Aluminum] AdvReac Mild itchy Unverified 11/22/19 08:51 General Stated Complaint: RespSymp IMELDA: 4 Review of Systems Narrative: Constitutional: Negative for weight loss, alert and oriented, well groomed, normal body habitus, appears comfortable. HEENT: Denies trauma, headaches, blurry vision, nasal discharge, positive sore throat and loss of voice. History of tonsillectomy and adenoidectomy. Chest: Denies chest pain, palpitations, irregular rhythm, hypertension. Respiratory: Denies Shortness of breath, hemoptysis. Positive cough with yellow productive sputum. GI: Denies abdominal pain, nausea, vomiting, diarrhea, constipation. : Denies dysuria, hematuria, flank pain, rectal bleeding. Neuro: Denies dizziness, blurry vision, weakness, syncope, headache or facial numbness. Hematologic: Denies easy bruising, intolerance to heat or cold, hair loss. [facility] Medical History Adrenal mass, right stable, followed with CT scan Allergic rhinitis Asthma due to seasonal allergies Eczema H/O laminectomy Osteoarthritis of right knee Osteopenia Umbilical hernia Surgical History Colonoscopy - IV Sedation 2010 Ligation of fallopian tube Repair of umbilical hernia (10/13/15) Replacement of total knee joint right 2006 Status post cataract extraction and insertion of intraocular lens of left eye (06/21/18) Status post cataract extraction and insertion of intraocular lens of right eye (07/05/18) Tonsillectomy and adenoidectomy Social History Smoking/Tobacco Use Status: Never Alcohol Intake: never Drug use: Never Substance use type: does not use Do you feel safe at home: Yes Do you feel safe in your relationship?: Yes Exam Narrative Exam Narrative: Constitutional: Alert and oriented x3. Appears stated age. Normal body habitus. Head: Normocephalic, no trauma. Eyes: Pupils PERRLA, Red reflex noted, EOM's intact. Eyelids symmetrical without lesions, discharge, or swelling. ENT: Bilateral TM's WNL, External ear normal to inspection, no mastoid TTP, swelling, or erythema, Nasal turbinates WNL, no nasal discharge. Normal dentition, Posterior pharynx erythemic, no exudate. Tonsils are 0 bilaterally he does have a history of tonsillectomy and adenoidectomy. Chest: RRR, Normal S1, S2, distal pulses intact. Resp: Lungs clear to auscultation bilaterally, no wheezes, rales, or rhonchi. Musculoskeletal: Normal gait, 5/5 strength to all four extremities. Skin: No suspicious rashes or lesions. Capillary refill less than 2 sec. Neurologic: Cranial nerves II-XII intact. Alert and oriented x 3. DTR's intact. Hematologic/Lymphatic: No ecchymosis, no lymphadenopathy. Course Vital Signs Vital signs: Vital Signs Temperature 36.5 C 11/22/19 08:49 Pulse 93 H 11/22/19 08:49 Respiratory Rate 20 11/22/19 08:49 Blood Pressure 130/75 11/22/19 08:49 Pulse Oximetry 96 11/22/19 08:49 Temperature 36.5 C 11/22/19 08:49 Temperature Source Skin 11/22/19 08:49 Pulse 93 H 11/22/19 08:49 Respiratory Rate 20 11/22/19 08:49 Respiratory Effort Non-Labored 11/22/19 08:56 Respiratory Depth Normal 11/22/19 08:56 Blood Pressure 130/75 11/22/19 08:49 Blood Pressure Position Sitting 11/22/19 08:49 Pulse Oximetry 96 11/22/19 08:49 Oxygen Delivery Method Room Air 11/22/19 08:49 Oxygen Flow Rate 0 11/22/19 08:49
[2019-11-22] MEDS: Dexamethasone 10 MG/ML VIAL PO (09:14)
[2019-11-22] MEDS: Acetaminophen 325 MG TAB 650 MG PO (09:14)
--- NOTE | 2019-11-27 16:03 | DI.VRAD_ITS ---
PROCEDURE INFORMATION: Exam: XR Chest, 1 View Exam date and time: 11/22/2019 9:32 AM Age: 74 years old Clinical indication: Other: Cough TECHNIQUE: Imaging protocol: XR of the chest Views: 1 view. COMPARISON: No relevant prior studies available. FINDINGS: Lungs: Lungs are clear except for some increased markings at the left heart border. Pleural space: Unremarkable. No pleural effusion. No pneumothorax. Heart/Mediastinum: Heart size is within normal limits. Bones/joints: Mild curvature of the spine suggestive scoliosis. IMPRESSION: Increase in lung markings at the left cardiophrenic angle which could represent a early infiltrate. Dictated and Authenticated by: Ernestine Churchill MD. Ordering:CARLOS A Goldstein MD
== END 2019-11-22 10:25 | disposition home or self-care (01) ==
PROVIDERS: Emergency Provider Registered Nurse Emergency; PCP Family Medicine
DX: J04.0 Acute laryngitis (principal); J18.9 Pneumonia, unspecified organism
CPT/HCPCS: 87880; 99283; 71045; 87081; 99284; J1100

== ENCOUNTER 2019-12-10 08:55 | Outpatient (REF) | payer MEDICARE, SELFPAY ==
[2019-12-10 22:45] LABS: ALT 41 U/L (14-59); AST 23 U/L (15-37); Albumin 3.4 g/dL (3.4-5.0); Alkaline Phosphatase 166 U/L (46-116); Anion Gap 5.5 mmol/L (3-11); BUN 26 mg/dL (7-18); Bilirubin, Total 0.3 mg/dL (0.2-1.0); CO2 30.5 mmol/L (21.0-32.0); CREATININE 0.76 mg/dL (0.55-1.02); Calcium 9.7 mg/dL (8.5-10.1); Calculated LDL 207 mg/dL (<100); Chloride 106 mmol/L (98-107); Cholesterol 290 mg/dL (<200); Glucose 97 mg/dL (74-106); HDL Cholesterol 49 mg/dL (40-60); Potassium 4.9 mmol/L (3.5-5.1); Sodium 142 mmol/L (136-145); Total Protein 7.3 g/dL (6.4-8.2); Triglyceride 172 mg/dL (<150)
== END 2019-12-10 09:15 ==
LOC: NCHCN 08:55
PROVIDERS: PCP Family Medicine; Visit Provider Family Medicine
DX: Z00.00 Encounter for general adult medical examination without abnormal findings (principal); I10 Essential (primary) hypertension
CPT/HCPCS: 80053; 80061

== ENCOUNTER 2019-12-19 18:21 | Emergency (ER) | payer OTHER, SELFPAY ==
[2019-12-19 18:29] VITALS: BP 114/73; PULSE 86; RESP 18; TEMP 36.6; O2SAT 99
--- NOTE | 2019-12-19 18:38 | ED.GENADUL_ITS ---
Discharge Plan Disposition Patient Disposition: HOME Condition: Stable Discharge Details Clinical Impression: Contusion of right hip Primary Care Provider: Mila Palacio ED Provider: Heri Barrera Home Meds and New Rx's Prescriptions: Continued multivitamin [Daily Multiple] 1 EACH tablet 1 ea PO DAILY RF: 0 lisinopril 10 mg Tablet 10 mg PO DAILY RF: 0 atorvastatin 20 mg Tablet 20 mg PO DAILY RF: 0 calcium carbonate-vitamin D3 [Calcium 600 with Vitamin D3] 600 mg(1,500mg) - 400 unit Capsule 2 tab PO DAILY RF: 0 albuterol sulfate 90 mcg/actuation HFA aerosol inhaler 2 puff inhalation QID PRN (Reason: shortness of breath or wheezing) Qty: 8 RF: 0 Discharge Instructions Instructions: Contusion in Adults (ED) Additional Instructions: At this time there is no evidence of fracture on your CT scan or x-rays. Please take Tylenol and Motrin as needed for pain. If you notice any worsening of your symptoms, or any new symptoms such as vomiting, diarrhea, fever, chills, shortness of breath, chest pain, numbness, weakness, or fainting , please return immediately to the emergency department for reevaluation. Please follow up with your primary care provider as soon as possible for reassessment and reev aluation. As always, it was a pleasure participating in your medical care today. Referrals: Mila Palacio [Primary Care Provider] - Medical Decision Making <Katelyn Wolfe DO - Last Filed: 12/19/19 20:02> 74-year-old female presents with right hip and thigh pain after fall down 3 steps hitting her right hip on the step today. Denies any other injuries. She has tenderness to palpation of her right lateral hip and right lateral proximal or mid thigh. She has no pain with range of motion of her right hip. She is neurovascularly intact. There is no evidence of trauma or cellulitis. Will refer for x-rays. She is declining any medication for pain. Pelvis x-ray notes heterogeneous appearance of the bones in the region of the pubic symphysis, underlying nondisplaced fracture is not excluded and recommend CT for further evaluation. Right femur x-ray negative. Will refer for pelvic CT. Case endorsed to Dr. Barrera to follow-up on CT imaging results and final disposition. Medical Records Medical records reviewed: Yes I reviewed the patient's medical records. <Heri Barrera, DO - Last Filed: 12/19/19 21:53> COMPARISON: CR XR PELVIS AP 12/19/2019 7:09 PM FINDINGS: Stomach and bowel: Distal colonic diverticulosis without diverticulitis. Vasculature: Atherosclerosis. Bones/joints: Degenerative changes in the lower lumbar spine. Degenerative changes in the pubic symphysis. No acute fracture or dislocation. Soft tissues: Unremarkable. IMPRESSION: No acute fracture or dislocation. Thank you for allowing us to participate in the care of your patient. Dictated and Authenticated by: Yosi Canchola MD Patient signed out to me pending CT imaging results. CT images negative for acute process or fracture. No evidence of occult fracture. Patient doing well does not want pain meds, ambulates without significant difficulty. Patient will be discharged home. No neurovascular deficits on reexamination. I have extensively reviewed the treatment plan and discharge instructions with the patient. I have addressed all patient concerns at this time. The patient was made aware of what symptoms to monitor for that would warrant a return to the emergency department. Discussed the plan with the patient, they demonstrate verbal understanding and agreement with our assessment and plan at this time. HPI <Katelyn Wolfe, DO - Last Filed: 12/19/19 20:02> General Mode of arrival: ambulatory . Date/Time Provider Initiated Documentation: 12/19/19 18:22 . Limitations to Documentation: no limitations . Information obtained by: patient . HPI Narrative: Patient is a 74-year-old female who presents with right hip and thigh pain after fall down 3 stairs today. 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 She denies head injury, chest pain, shortness of breath, abdominal pain, other extremity injury. She has not taken any medication for pain. Related Data Home Medications Medication Instructions Recorded Confirmed multivitamin [Daily Multiple] 1 ea PO DAILY 08/22/17 12/19/19 calcium carbonate-vitamin D3 2 tab PO DAILY 10/25/17 12/19/19 [Calcium 600 with Vitamin D3] lisinopril 10 mg PO DAILY 06/09/18 12/19/19 albuterol sulfate 2 puff INHALATION QID PRN #8 g 11/22/19 12/19/19 atorvastatin 20 mg PO DAILY 12/19/19 12/19/19 Previous Rx's Medication Instructions Recorded albuterol sulfate 2 puff INHALATION QID PRN #8 g 11/22/19 Allergies Allergy/AdvReac Type Severity Reaction Status Date / Time latex Allergy SKIN Unverified 12/19/19 18:38 REACTION CONTACT DERMATITIS aluminum [Aluminum] AdvReac Mild itchy Unverified 12/19/19 18:38 General Stated Complaint: Orthopedic IMELDA: 4 Review of Systems <Katelyn Wolfe DO - Last Filed: 12/19/19 20:02> All systems reviewed & are unremarkable except as noted in HPI and below Constitutional Constitutional: Reports as per HPI, Denies chills and Denies fever(s) Eyes Eyes: Denies blurry vision ENT Ears, Nose, Mouth, and Throat: Denies dizziness, Denies sore throat and Denies throat swelling Cardiovascular Cardiovascular: Denies chest pain and Denies dyspnea Respiratory Respiratory: Denies cough and Denies dyspnea Gastrointestinal Gastrointestinal: Denies abdominal pain, Denies diarrhea and Denies vomiting Genitourinary Genitourinary: Denies hematuria and Denies dysuria Musculoskeletal Musculoskeletal: Denies back pain and Denies numbness Integumentary/Breasts Skin/Breast: Denies lesions and Denies rash Neurologic Neurologic: Denies dizziness, Denies localized weakness and Denies numbness Allergic/Immunologic Allergic/Immunologic: Denies throat swelling PFSH <Katelyn Wolfe DO - Last Filed: 12/19/19 20:02> Medical History Adrenal mass, right stable, followed with CT scan Allergic rhinitis Asthma due to seasonal allergies Eczema H/O laminectomy Osteoarthritis of right knee Osteopenia Umbilical hernia Surgical History Colonoscopy - IV Sedation 2009 Ligation of fallopian tube Repair of umbilical hernia (10/13/15) Replacement of total knee joint right 2007 Status post cataract extraction and insertion of intraocular lens of left eye (06/21/18) Status post cataract extraction and insertion of intraocular lens of right eye (07/05/18) Tonsillectomy and adenoidectomy Social History Smoking/Tobacco Use Status: Never Smoking risk assessment performed?: Yes Alcohol Intake: never Drug use: Never Substance use type: does not use Do you feel safe at home: Yes Do you feel safe in your relationship?: Yes Exam <Katelyn Wolfe DO - Last Filed: 12/19/19 20:02> Const General: cooperative, healthy appearing and no acute distress HENMT Head: normal to inspection Face and sinus: normal facial exam Eyes General: appearance normal, both eyes and all related structures Pupils: PERRL EOM: EOM intact bilaterally Neck Neck: normal visual inspection and No submandibular swelling Lymphatic: no lymphadenopathy noted Chest Chest: normal inspection of the chest and no tenderness Resp Effort & Inspection: normal respiratory effort and able to speak in complete sentences Auscultation: clear to auscultation bilaterally Cardio Rate: regular rate Rhythm: regular rhythm GI Inspection: normal to inspection Palpation: soft, not firm, not rigid and nontender Auscultation: normal bowel sounds Back/Spine/Pelvis Thoracic/Lumbar Spine: thoracic and lumbar spine normal to inspection Pelvis: no pain with anterior-posterior compression Skin General skin exam: no rashes or lesions noted Neuro General: patient alert, patient awake and patient oriented x3 Cognition: normal cognition Speech: speech normal Motor: muscle tone normal throughout Sensory Exam: no sensory deficits noted Extrem General: normal to inspection, capillary refill normal, no calf tenderness bilaterally and no edema Other: No pain in right hip with range of motion. Right knee and ankle normal to inspection. Right PT and DP pulses intact. Psych Appearance: grossly normal Mental Status: mental status grossly normal Speech and Movement: speech and movement normal Affect: normal affect Course <Katelyn Wolfe DO - Last Filed: 12/19/19 20:02> Vital Signs Vital signs: Vital Signs Temperature 97.9 F 12/19/19 18:29 Pulse 86 12/19/19 18:29 Respiratory Rate 18 12/19/19 18:29 Blood Pressure 114/73 12/19/19 18:29 Pulse Oximetry 99 12/19/19 18:29 Temperature 97.9 F 12/19/19 18:29 Temperature Source Oral 12/19/19 18:29 Pulse 86 12/19/19 18:29 Respiratory Rate 18 12/19/19 18:29 Respiratory Effort Non-Labored 12/19/19 18:36 Blood Pressure 114/73 12/19/19 18:29 Blood Pressure Position Sitting 12/19/19 18:29 Pulse Oximetry 99 12/19/19 18:29 Oxygen Delivery Method Room Air 12/19/19 18:29 Oxygen Flow Rate 0 12/19/19 18:29 Pain Level 5 12/19/19 18:29 Comment 12/19/19 18:29 Sign Out <Katelyn Wolfe DO - Last Filed: 12/19/19 20:02> Sign Out Data: Sign Out Comment: Follow up on CT imaging and final disposition. Last updated by Katelyn Wolfe DO at 12/19/19 20:03
--- NOTE | 2019-12-19 18:45 | DI.RAD_ITS ---
EXAM: XR PELVIS AP CLINICAL HISTORY: s/p fall, r/o acute fracture TECHNIQUE: CT CT PELVIC WO from 12/19/2019 CR,XR XR FEMUR RT from 12/19/2019 FINDINGS: In AP view of the pelvis and four views of the femur were obtained. There is a question minimal defo rmity adjacent to the pubic symphysis on the right, fracture not excluded. Additionally, on the late ral view of the proximal femur, there is a questionable lucency projected through the acetabulum on t he right. Acetabular fracture not excluded. Additional evaluation with CT may be obtained if clinic ally appropriate. No femoral fracture seen. Total knee joint replacement noted in position with the components well se ated as visualized. IMPRESSION: Questionable areas of lucency which could represent pelvic fracture, CT recommended. RADIATION DOSE DELIVERED: Total DLP
--- NOTE | 2019-12-19 19:34 | DI.VRAD_ITS ---
PROCEDURE INFORMATION: Exam: XR Pelvis Exam date and time: 12/19/2019 7:01 PM Age: 74 years old Clinical indication: Other: S/P fall, R/O acute FX TECHNIQUE: Imaging protocol: XR pelvis. Views: 1 or 2 view. COMPARISON: CR LEFT HIP COMPLETE \T\amp; AP PELVIS 08/11/2013 2:39 AM FINDINGS: Bones/joints: Degenerative changes in the pubic symphysis. Heterogeneous appearance of the bones in the region of the pubic symphysis. Underlying nondisplaced fractures are not excluded. Consider CT for further evaluation. Soft tissues: Unremarkable. IMPRESSION: Heterogeneous appearance of the bones in the region of the pubic symphysis. Underlying nondisplaced fractures are not excluded. Consider CT for further evaluation. Dictated and Authenticated by: Yosi Canchola MD. Ordering:TRENT Zepeda MD
--- NOTE | 2019-12-19 19:34 | DI.VRAD_ITS ---
PROCEDURE INFORMATION: Exam: XR Right Femur Exam date and time: 12/19/2019 6:50 PM Age: 74 years old Clinical indication: Other: S/P fall, R/O acute FX TECHNIQUE: Imaging protocol: XR Right femur. Views: 2 views. COMPARISON: CR RIGHT KNEE LIMITED 1 OR 2 VIEW 08/17/2015 10:31 AM FINDINGS: Bones/joints: Right knee replacement appears intact without evidence of loosening or infection. No acute fracture or dislocation. Soft tissues: Unremarkable. IMPRESSION: No acute fracture or dislocation. Intact knee replacement hardware. Dictated and Authenticated by: Yosi Canchola MD. Ordering:TRENT Zepeda MD
--- NOTE | 2019-12-19 20:22 | DI.CT_ITS ---
EXAM: CT PELVIC WO CLINICAL HISTORY: s/p fall, r/o acute fracture TECHNIQUE: COMPARISON: CT UPPER ABD WITH CONTRAST (P) from 03/01/2015 FINDINGS: CT examination of pelvis was performed without contrast administration. Pelvic contents are unremark able. No adenopathy seen. There are old cortical irregularities at the pubic symphysis, no acute fr acture seen. The acetabula and femoral heads appear normal bilaterally. IMPRESSION: No evidence of acute pelvic or hip fracture. RADIATION DOSE DELIVERED: 467.06mGy.cm Total DLP
--- NOTE | 2019-12-19 20:38 | DI.VRAD_ITS ---
PROCEDURE INFORMATION: Exam: CT Pelvis Without Contrast; Skeletal Exam date and time: 12/19/2019 8:01 PM Age: 74 years old Clinical indication: Injury or trauma; Fall; Blunt trauma (contusions or hematomas); Right; Pelvic region; Injury date: 12/19/19; Injury details: Heterogeneous appearance of bones in symphysis, ? FX TECHNIQUE: Imaging protocol: Computed tomography images of the pelvis without contrast. Exam focused on the skeletal structures. Radiation optimization: All CT scans at this facility use at least one of these dose optimization techniques: automated exposure control; mA and/or kV adjustment per patient size (includes targeted exams where dose is matched to clinical indication); or iterative reconstruction. COMPARISON: CR XR PELVIS AP 12/19/2019 7:09 PM FINDINGS: Stomach and bowel: Distal colonic diverticulosis without diverticulitis. Vasculature: Atherosclerosis. Bones/joints: Degenerative changes in the lower lumbar spine. Degenerative changes in the pubic symphysis. No acute fracture or dislocation. Soft tissues: Unremarkable. IMPRESSION: No acute fracture or dislocation. Dictated and Authenticated by: Yosi Canchola MD. Ordering:TRENT Zepeda MD
[2019-12-19 21:45] VITALS: BP 129/86; PULSE 100; RESP 16; TEMP 36.9; O2SAT 100
--- NOTE | 2019-12-19 21:47 | NUR.NOTE ---
patient rounded on and aware that provider will be in as soon as they can. Nursing Note:
== END 2019-12-19 22:15 | disposition home or self-care (01) ==
PROVIDERS: Emergency Provider Student in an Organized Health Care Education/Training Program; PCP Family Medicine
DX: S70.01XA Contusion of right hip, initial encounter (principal); W10.8XXA Fall (on) (from) other stairs and steps, initial encounter; Y99.0 Civilian activity done for income or pay
CPT/HCPCS: 73552; 99284; 72170; 72192; 99285

== ENCOUNTER 2020-01-15 01:08 | Outpatient (CLI) | payer MEDICARE, SELFPAY ==
--- NOTE | 2020-01-15 11:10 | DI.MAMMO_ITS ---
EXAM: MG MAMMO SCREENING CLINICAL HISTORY: SCREENING,Z12.31. TECHNIQUE: Bilateral full field digital CC and MLO mammographic images were obtained with 3D tomosyn thesis and utilizing computer aided detection (CAD). COMPARISON: Prior mammograms dating back to 2012, the most recent being August 2017. FINDINGS: The fibroglandular tissue is moderately dense, this decreasing the sensitivity mammogram for finding in underlying lesions. There are no new dominant masses nor malignant appearing microcalcification groups. Increasing microc alcifications in the right breast are noted but these have benign appearance. There is no new nika ectural distortion nor skin thickening-retraction. IMPRESSION: Benign findings. No radiographic evidence of malignancy. BI-RADS Category 2 - Benign Findings Breast Density - Category C - Heterogeneously dense Breast density Category C or D implies that the patient has dense breast tissue. Dense breast tissue can make it harder to find cancer on a mammogram. Dense breast tissue is also associated with an incr eased risk of breast cancer. This information about the result of the mammogram report was provided to the patient to raise their awareness. Use this report when you speak with the patient about their risks for breast cancer, which includes their family history. At that time, you may recommend additional screening tests (Ultrasoun d or MRI) as these tests may add significant information. A negative radiographic report should not delay biopsy if a dominant or clinically suspicious mass is present. Up to ten percent of cancers are not identified on mammography. A negative report may reinforce clinical impression. Adenosis and dense breasts may obscure an underlying neoplasm. False positive reports average 6 to 10%. Patient will receive a letter notifying them of these results.
== END 2020-01-15 01:28 ==
PROVIDERS: PCP Family Medicine; Visit Provider Family Medicine
DX: Z12.31 Encounter for screening mammogram for malignant neoplasm of breast (principal)
CPT/HCPCS: 77063; 77067

== ENCOUNTER 2020-03-25 12:08 | Outpatient (REF) | payer MEDICARE, SELFPAY ==
[2020-03-25 13:32] LABS: ALT 37 U/L (14-59); AST 22 U/L (15-37); Albumin 3.5 g/dL (3.4-5.0); Alkaline Phosphatase 160 U/L (46-116); Bilirubin, Direct 0.11 mg/dL (0.00-0.20); Bilirubin, Total 0.5 mg/dL (0.2-1.0); Total Protein 7.2 g/dL (6.4-8.2)
[2020-03-25 13:50] LABS: Calculated LDL 101 mg/dL (<100); Cholesterol 178 mg/dL (<200); HDL Cholesterol 55 mg/dL (40-60); Triglyceride 111 mg/dL (<150)
== END 2020-03-25 12:09 | disposition home or self-care (01) ==
LOC: NCHCN 12:08
PROVIDERS: PCP Family Medicine; Visit Provider Family Medicine
DX: Z00.00 Encounter for general adult medical examination without abnormal findings (principal); E78.5 Hyperlipidemia, unspecified; I10 Essential (primary) hypertension
CPT/HCPCS: 80061; 80076

== ENCOUNTER 2020-05-16 09:35 | Emergency (ER) | payer MEDICARE, SELFPAY ==
[2020-05-16 09:40] VITALS: BP 163/81; PULSE 83; RESP 16; TEMP 36; O2SAT 99
--- NOTE | 2020-05-16 09:56 | W.ED.GENAD ---
Discharge Plan Disposition Patient Disposition: HOME Condition: Improving Discharge Details Clinical Impression: Laryngitis Primary Care Provider: Mila Palacio ED Provider: Humberto Bass Home Meds and New Rx's Prescriptions: New prednisone 50 mg tablet 50 mg PO DAILY 4 Days Qty: 4 RF: 0 Cepacol Sore Throat (marti-men) 15-2.6 mg lozenge 1 gurinder mucous membrane Q2H PRNQty: 16 RF: 0 Continued multivitamin [Daily Multiple] 1 EACH tablet 1 ea PO DAILY RF: 0 lisinopril 10 mg Tablet 10 mg PO DAILY RF: 0 atorvastatin 20 mg Tablet 20 mg PO DAILY RF: 0 calcium carbonate-vitamin D3 [Calcium 600 with Vitamin D3] 600 mg(1,500mg) -400 unit Capsule 2 tab PO DAILY RF: 0 albuterol sulfate 90 mcg/actuation HFA aerosol inhaler 2 puff inhalation QID PRN (Reason: shortness of breath or wheezing) Qty: 8 RF: 0 Discharge Instructions Instructions: Laryngitis (ED) Additional Instructions: Take prednisone as prescribed, next dose tomorrow. Cepacol lozenges every 2-4 hours as needed for comfort. Continue to liberally hydrate with small, frequent sips of fluids and/or popsicles. Return to the ER for increasing discomfort, difficulty breathing, or any other concerns. Medical Decision Making 75-year-old female presents from home with 3 days of sore throat and hoarse voice, similar to previous episodes of laryngitis. No significant cough, no fever, no difficulty swallowing. No productive sputum. She is well-appearing, pleasant on exam. I do not feel this is pneumonia, discussed with her potential for Covid testing which she declines. I do feel she has inflammatory, likely allergic/vernal laryngitis. Will place on short burst of prednisone, add Cepacol lozenges, she will continue to liberally hydrate. She understands indications to seek reevaluation and is stable for discharge to home. HPI General Mode of arrival: ambulatory. Date/Time Provider Initiated Documentation: 05/16/20 09:36. Limitations to Documentation: no limitations. Information obtained by: patient. History of Present Illness 75 year old F presents to the emergency department with the chief complaint of Laryngitis, described as moderate and similar to prior episodes, Quality is described as dull and constant, and is localized to the mouth. Patient reports no radiation. Patient started experiencing this day(s) and it has been constant. No relieving factors improve symptom(s), No exacerbating factors reported . Patient notes cough; denies chest pain, fever/chills and shortness of breath. Patient did receive the following treatments prior to arrival, none Related Data Home Medications Medication Instructions Recorded Confirmed multivitamin [Daily Multiple] 1 ea PO DAILY 08/22/17 05/16/20 calcium carbonate-vitamin D3 2 tab PO DAILY 10/25/17 05/16/20 [Calcium 600 with Vitamin D3] lisinopril 10 mg PO DAILY 06/09/18 05/16/20 albuterol sulfate 2 puff INHALATION QID PRN #8 g 11/22/19 05/16/20 atorvastatin 20 mg PO DAILY 12/19/19 05/16/20 benzocaine-menthol [Cepacol Sore 1 gurinder MUCOUS MEMBRANE Q2H PRN #16 05/16/20 Throat (marti-men)] ea prednisone 50 mg PO DAILY 4 Days #4 tab 05/16/20 Previous Rx's Medication Instructions Recorded albuterol sulfate 2 puff INHALATION QID PRN #8 g 11/22/19 benzocaine-menthol [Cepacol Sore 1 gurinder MUCOUS MEMBRANE Q2H PRN #16 05/16/20 Throat (marti-men)] ea prednisone 50 mg PO DAILY 4 Days #4 tab 05/16/20 Allergies Allergy/AdvReac Type Severity Reaction Status Date / Time latex Allergy SKIN Unverified 05/16/20 09:46 REACTION CONTACT DERMATITIS aluminum [Aluminum] AdvReac Mild itchy Unverified 05/16/20 09:46 General Stated Complaint: RespSymp IMELDA: 4 Review of Systems Narrative: No drooling, difficulty breathing, minimal cough. Similar to previous in the past. No shortness of breath or chest pain. 6 systems reviewed and otherwise negative [facility] Medical History Adrenal mass, right stable, followed with CT scan Allergic rhinitis Asthma due to seasonal allergies Eczema H/O laminectomy Osteoarthritis of right knee Osteopenia Umbilical hernia Surgical History Colonoscopy - IV Sedation 2009 Ligation of fallopian tube Repair of umbilical hernia (10/13/15) Replacement of total knee joint right 2007 Status post cataract extraction and insertion of intraocular lens of left eye (06/21/18) Status post cataract extraction and insertion of intraocular lens of right eye (07/05/18) Tonsillectomy and adenoidectomy Social History Smoking/Tobacco Use Status: Never Smoking risk assessment performed?: Yes Alcohol Intake: never Drug use: Never Substance use type: does not use Do you feel safe at home: Yes Do you feel safe in your relationship?: Yes Exam Narrative Exam Narrative: GEN: awake, alert, oriented 3. Pleasant, well groomed, interactive. HEAD: Normocephalic, atraumatic ENT: Mucous membranes moist, oropharynx unremarkable with minimal erythema, no edema and no exudate. No asymmetry. Tympanic membranes clear bilaterally, External ear exam unremarkable EYES: PERRL, EOMI NECK: Full ROM, no MILKA, no menigismus CHEST/RESP: Nontender, clear to auscultation bilateral, no wheeze/rhonchi/rales CARDIOVASCULAR: RRR, no murmur, rub gianna. 2+ Rad pulse bilateral EXT: Full ROM, no edema, no rash Neuro: Grossly normal neurologic exam, conversant, interactive. Psych: Speech fluent, thoughts congruent, affect normal Course Vital Signs Vital signs: Vital Signs Temperature 36 C L 05/16/20 09:40 Pulse 83 05/16/20 09:40 Respiratory Rate 16 05/16/20 09:40 Blood Pressure 163/81 H 05/16/20 09:40 Pulse Oximetry 99 05/16/20 09:40 Temperature 36 C L 05/16/20 09:40 Temperature Source Skin 05/16/20 09:40 Pulse 83 05/16/20 09:40 Respiratory Rate 16 05/16/20 09:40 Respiratory Effort Non-Labored 05/16/20 09:48 Respiratory Depth Normal 05/16/20 09:48 Blood Pressure 163/81 H 05/16/20 09:40 Blood Pressure Position Sitting 05/16/20 09:40 Pulse Oximetry 99 05/16/20 09:40 Oxygen Delivery Method Room Air 05/16/20 09:40 Oxygen Flow Rate 0 05/16/20 09:40 Pain Level 0 05/16/20 09:40
[2020-05-16] MEDS: predniSONE 20 MG TAB 60 MG PO (10:01)
--- NOTE | 2020-05-16 10:53 | NUR.NOTE ---
Nursing Note: At the patient request the work release note was faxed to [facility] . The patient also has her own copy of the work release. Ebonie Bucio
== END 2020-05-16 10:15 | disposition home or self-care (01) ==
PROVIDERS: Emergency Provider Emergency Medicine; PCP Family Medicine
DX: J04.0 Acute laryngitis (principal)
CPT/HCPCS: 99283; J7512

== ENCOUNTER 2020-05-19 22:18 | Outpatient (REF) | payer MEDICARE, SELFPAY ==
[2020-05-21 17:31] LABS: COVID-19 RT-PCR UVMMC Result Negative (Negative)
== END 2020-05-19 22:19 | disposition home or self-care (01) ==
LOC: NCHCN 22:18
PROVIDERS: PCP Family Medicine; Visit Provider Family Medicine
DX: Z20.822 Contact with and (suspected) exposure to COVID-19 (principal)
CPT/HCPCS: U0003

== ENCOUNTER 2020-06-03 19:26 | Outpatient (REF) | payer MEDICARE, SELFPAY ==
[2020-06-05 12:20] LABS: COVID-19 RT-PCR UVMMC Result Negative (Negative)
== END 2020-06-03 19:27 | disposition home or self-care (01) ==
LOC: NCHCN 19:26
PROVIDERS: PCP Family Medicine; Visit Provider Family Medicine
DX: Z20.822 Contact with and (suspected) exposure to COVID-19 (principal); R05 Cough
CPT/HCPCS: U0003; U0005

== ENCOUNTER 2021-05-22 11:25 | Emergency (ER) | payer MEDICARE, SELFPAY ==
[2021-05-22 11:28] VITALS: BP 137/64; PULSE 88; RESP 18; TEMP 36.4; O2SAT 96
--- NOTE | 2021-05-22 11:45 | DI.RAD_ITS ---
Exam(s) XR PORTABLE CHEST AP EXAM: XR PORTABLE CHEST AP CLINICAL HISTORY: Cough, bronchitis. TECHNIQUE: 2D digital imaging was performed. COMPARISON: CR,XR XR PORTABLE CHEST AP from 11/22/2019 FINDINGS: LUNGS: Clear. No pleural abnormality seen. HEART: Normal. MEDIASTINUM: Normal. OTHER FINDINGS: None. IMPRESSION: No acute pulmonary findings. DATA REPOSITORY: RADIATION DOSE DELIVERED: Total DLP
--- NOTE | 2021-05-22 11:52 | ED.GENADUL_ITS ---
Discharge Plan Disposition Patient Disposition: HOME Condition: Improving Discharge Details Clinical Impression: Laryngitis Primary Care Provider: Mila Palacio ED Provider: Humberto Bass Home Meds and New Rx's Prescriptions: New prednisone 50 mg tablet 50 mg PO DAILY 5 Days Qty: 5 0RF Continued multivitamin [Daily Multiple] 1 EACH tablet 1 ea PO DAILY 0RF lisinopril 10 mg Tablet 10 mg PO DAILY 0RF atorvastatin 20 mg Tablet 20 mg PO DAILY 0RF calcium carbonate-vitamin D3 [Calcium 600 with Vitamin D3] 600 mg(1,500mg) - 400 unit Capsule 2 tab PO DAILY 0RF albuterol sulfate 90 mcg/actuation HFA aerosol inhaler 2 puff inhalation QID PRN (Reason: shortness of breath or wheezing) Qty: 8 0RF Cepacol Sore Throat (marti-men) 15-2.6 mg lozenge 1 gurinder mucous membrane Q2H PRNQty: 16 0RF Discharge Instructions Instructions: Laryngitis (ED) Additional Instructions: Home to rest today. Take prednisone as prescribed. Next dose will be tomorrow. May use [id number] throat lozenges as needed for comfort. Small, frequent sips of fluids and/or popsicles for comfort. Return to the ER for any acute concerns. Medical Decision Making This is an otherwise healthy 76-year-old female presents with 3 days of dry cough and scratchy throat similar to previous episodes of bronchitis and laryngitis. She notes a hoarse voice. No change to taste or smell. She has been immunized against COVID-19. Patient's vital signs and exam are unremarkable. She underwent COVID-19 send out test, portable chest x-ray. Chest x-ray: No acute disease. We will treat for laryngitis with a burst of prednisone as this has had great effect in the past. Discussed with her I do not feel antibiotics are indicated at this point. She is stable and appropriate for discharge to home. HPI General Date/Time Provider Initiated Documentation: 05/22/21 11:26 . Limitations to Documentation: no limitations . Information obtained by: patient . History of Present Illness 76 year old F presents to the emergency department with the chief complaint of Cough, laryngitis, similar to previous, described as moderate and similar to prior episodes, Quality is described as dull and constant, and is localized to the mouth and chest. Patient reports no radiation. Patient started experiencing this day(s) and it has been constant. improves with No relieving factors improve symptom(s), No exacerbating factors reported . Patient notes cough; denies fever/chills, loss of appetite, nausea/vomiting and shortness of breath. Patient did receive the following treatments prior to arrival, none Related Data Home Medications Medication Instructions Recorded Confirmed multivitamin (Daily Multiple) 1 ea PO DAILY 08/22/17 05/22/21 calcium carbonate 600 mg-vitamin 2 tab PO DAILY 10/25/17 05/22/21 D3 10 mcg (400 unit) capsule (Calcium 600 with Vitamin D3) lisinopril 10 mg tablet 10 mg PO DAILY 06/09/18 05/22/21 albuterol sulfate 90 mcg/actuation 2 puff INHALATION QID PRN #8 g 11/22/19 05/22/21 aerosol inhaler atorvastatin 20 mg tablet 20 mg PO DAILY 12/19/19 05/22/21 benzocaine 15 mg-menthol 2.6 mg 1 gurinder MUCOUS MEMBRANE Q2H PRN #16 05/16/20 05/22/21 lozenges (Cepacol Sore Throat ea (benzocaine-menthol)) prednisone 50 mg tablet 50 mg PO DAILY 5 Days #5 tab 05/22/21 Previous Rx's Medication Instructions Recorded albuterol sulfate 90 mcg/actuation 2 puff INHALATION QID PRN #8 g 11/22/19 aerosol inhaler benzocaine 15 mg-menthol 2.6 mg 1 gurinder MUCOUS MEMBRANE Q2H PRN #16 05/16/20 lozenges (Cepacol Sore Throat ea (benzocaine-menthol)) prednisone 50 mg tablet 50 mg PO DAILY 5 Days #5 tab 05/22/21 Allergies Allergy/AdvReac Type Severity Reaction Status Date / Time latex Allergy SKIN Unverified 05/22/21 11:36 REACTION CONTACT DERMATITIS aluminum [Aluminum] AdvReac Mild itchy Unverified 05/22/21 11:36 General Stated Complaint: RespSymp IMELDA: 3 Review of Systems Narrative: GEN: awake, alert, oriented 3. Pleasant, well groomed, interactive. HEAD: Normocephalic, atraumatic ENT: Mucous membranes moist, oropharynx mildly erythematous without swelling or exudate, External ear exam unremarkable EYES: PERRL, EOMI NECK: Full ROM, no MILKA, no menigismus CHEST/RESP: Nontender, clear to auscultation bilateral, no wheeze/rhonchi/rales CARDIOVASCULAR: RRR, no murmur, rub gianna. 2+ Rad pulse bilateral ABDOMEN: Soft, nontender, no mass. +Bowel sounds EXT: Full ROM, no edema, no rash Neuro: Grossly normal neurologic exam, conversant, interactive. Psych: Speech fluent, thoughts congruent, affect normal PFSH All Active Problems Laryngitis (Acute) Laryngitis (Acute) Status post cataract extraction and insertion of intraocular lens of right eye (Chronic 07/05/18) Foot fracture (Acute) Fracture of pubic ramus (Acute) Hypertension (Chronic) History of Surgical Procedure (Chronic) a. Right knee replacement and arthroscopy. Status post cataract extraction and insertion of intraocular lens of left eye (Chronic 06/21/18) Medical History Adrenal mass, right stable, followed with CT scan Allergic rhinitis Asthma due to seasonal allergies Eczema Osteoarthritis of right knee Osteopenia Umbilical hernia Surgical History Colonoscopy - IV Sedation 2009 H/O laminectomy Ligation of fallopian tube Repair of umbilical hernia (10/13/15) Replacement of total knee joint right 2007 Tonsillectomy and adenoidectomy Social History Smoking/Tobacco Use Status: Never Smoking risk assessment performed?: Yes Alcohol Intake: never Drug use: Never Substance use type: does not use Do you feel safe at home: Yes Do you feel safe in your relationship?: Yes Course Vital Signs Vital signs: Vital Signs Temperature 36.4 C L 05/22/21 11:28 Pulse 88 05/22/21 11:28 Respiratory Rate 18 05/22/21 11:28 Blood Pressure 137/64 05/22/21 11:28 Pulse Oximetry 96 05/22/21 11:28 Temperature 36.4 C L 05/22/21 11:28 Temperature Source Skin 05/22/21 11:28 Pulse 88 05/22/21 11:28 Respiratory Rate 18 05/22/21 11:28 Respiratory Effort 05/22/21 11:37 Blood Pressure 137/64 05/22/21 11:28 Blood Pressure Position Sitting 05/22/21 11:28 Pulse Oximetry 96 05/22/21 11:28 Oxygen Delivery Method Room Air 05/22/21 11:28 Oxygen Flow Rate 0 05/22/21 11:28 Pain Level 0 05/22/21 11:28
--- NOTE | 2021-05-22 12:33 | DI.VRAD_ITS ---
PROCEDURE INFORMATION: Exam: XR Chest Exam date and time: 05/22/2021 12:00 PM Age: 76 years old Clinical indication: Other: Cough, bronchitis TECHNIQUE: Imaging protocol: XR of the chest. Views: 1 view. COMPARISON: XR PORTABLE CHEST AP 11/22/2019 9:24 AM FINDINGS: Lungs: No new airspace consolidation or CHF. Pleural spaces: Unremarkable. No pleural effusion. No pneumothorax. Heart/Mediastinum: Heart, mediastinum are unchanged Bones/joints: Degenerative changes are seen in the spine. There is no new bony abnormality IMPRESSION: No new or acute findings on AP chest Dictated and Authenticated by: Carolina Trejo MD. Ordering:CARLOS Paul MD
[2021-05-22] MEDS: predniSONE 40 MG, predniSONE 10 MG 50 MG PO (12:48)
[2021-05-24 13:09] LABS: COVID-19 RT-PCR UVMMC Result Negative (Negative)
== END 2021-05-22 12:40 | disposition home or self-care (01) ==
PROVIDERS: Emergency Provider Emergency Medicine; PCP Family Medicine
DX: J04.0 Acute laryngitis (principal); R05.1 Acute cough; Z20.822 Contact with and (suspected) exposure to COVID-19
CPT/HCPCS: 99283; U0003; 71045; J7512

== ENCOUNTER 2021-08-10 14:45 | Outpatient (REF) | payer MEDICARE, SELFPAY ==
[2021-08-12 10:58] LABS: COVID-19 RT-PCR UVMMC Result Negative (Negative)
== END 2021-08-10 14:46 | disposition home or self-care (01) ==
LOC: LBN 14:45
PROVIDERS: PCP Family Medicine; Visit Provider Nurse Practitioner Family
DX: Z20.822 Contact with and (suspected) exposure to COVID-19 (principal)
CPT/HCPCS: U0003; U0005

== ENCOUNTER 2021-09-28 12:57 | Outpatient (REF) | payer MEDICARE, SELFPAY ==
[2021-09-30 15:23] LABS: COVID-19 RT-PCR UVMMC Result Negative (Negative)
== END 2021-09-28 12:58 | disposition home or self-care (01) ==
LOC: LBN 12:57
PROVIDERS: PCP Family Medicine; Visit Provider Physician Assistant Medical
DX: Z20.822 Contact with and (suspected) exposure to COVID-19 (principal)
CPT/HCPCS: U0003

== ENCOUNTER 2021-11-29 13:10 | Outpatient (REF) | payer MEDICARE, SELFPAY ==
--- NOTE | 2021-11-29 12:45 | PAPFT_PTH ---
PATIENT: Irena Taveras LOC: [facility] U#:[id number] AGE/SX: 76/F ROOM: RE11/29/[address]: Elba Tellez : 1945 BED: DIS: 11/29/2021 SPEC #: [id number] RECD: 11/29/21 18:19 STATUS: HEMANTH REQ #: [id number] TONNY: 11/29/21 12:[address]: Elba Tellez [facility] Cytology RECD BY: Su Tian ENTERED: 11/29/21 18:19 SP TYPE: PAPFT SEGUNDO DR: Mila Palacio Tissues: 1 - CX/ENDOCX FOR PAP SMEARS Procedures: PAP THIN PREP/UVM Screening HPV DNA PROBE Comments: [id number]
== END 2021-11-29 13:11 | disposition home or self-care (01) ==
LOC: NCHCN 13:10
PROVIDERS: PCP Family Medicine; Visit Provider Nurse Practitioner Family
DX: Z11.51 Encounter for screening for human papillomavirus (HPV); N95.9 Unspecified menopausal and perimenopausal disorder; Z01.419 Encounter for gynecological examination (general) (routine) without abnormal findings
CPT/HCPCS: 88142; 87624

== ENCOUNTER 2021-12-07 02:08 | Outpatient (CLI) | payer MEDICARE, SELFPAY ==
--- NOTE | 2021-12-07 | DI.US_ITS ---
Exam(s) US PELVIS TRANSVAGINAL EXAM: US PELVIS TRANSVAGINAL CLINICAL HISTORY: POSTMENOPAUSAL BLEEDING, N95.9 TECHNIQUE: Ultrasound performed using standard protocol. COMPARISON: No exams were available for comparison FINDINGS: Pelvic ultrasound was performed transabdominally and transvaginally. Uterus measures 9.5 x 5 x 2.2 cm. Myometrium is unremarkable. Endometrial stripe is 1-2 millimeters in thickness and appears homogeneous. No free fluid in the cul-de-sac. Ovaries are nonvisualized. Limited scanning of the kidneys is unremarkable. IMPRESSION: Negative pelvic ultrasound, ovaries were nonvisualized. DATA REPOSITORY:
== END 2021-12-07 02:28 ==
LOC: DI 02:08
PROVIDERS: PCP Family Medicine; Visit Provider Nurse Practitioner Family
DX: N95.9 Unspecified menopausal and perimenopausal disorder (principal)
CPT/HCPCS: 76830; 76856

== ENCOUNTER → 2021-12-22 02:32 | Outpatient (CLI) | payer MEDICARE, SELFPAY ==
--- NOTE | 2021-12-22 08:18 | DI.MAMMO_ITS ---
Exam(s) MAMMO SCREENING EXAM: MAMMO SCREENING CLINICAL HISTORY: SCREENING, Z12.31 TECHNIQUE: Bilateral full field digital CC and MLO mammographic images were obtained with 3D tomosyn thesis and utilizing computer aided detection (CAD). COMPARISON: Available for comparison. FINDINGS: Masses/Architectural Distortion: None seen. Microcalcifications: No suspicious pleomorphic-type are seen. Skin Thickening/Nipple Retraction: None. IMPRESSION: 1. No significant interval change with no specific features of malignancy noted. 2. Unless there is more urgent need, screening mammography is recommended, as per [employer] guidelines. BI-RADS Category 1 - Negative Breast Density - Category C - Heterogeneously dense Breast density category C or D implies that the patient has dense breast tissue. Dense breast tissue is very common and is not abnormal but dense breast tissue can make it harder to find cancer on a ma mmogram. Also, dense breast tissue may increase their breast cancer risk. This information about the result of the mammogram report was provided to the patient to raise their awareness. Use this report when you speak with the patient about their risks for breast cancer, which includes their family hist ory. At that time, you may recommend for more screening tests (Ultrasound or MRI) as they might be us eful based on their risk. A negative radiographic report should not delay biopsy if a dominant or clinically suspicious mass is present. Up to ten percent of cancers are not identified on mammography. A negative report may reinforce clinical impression. Adenosis and dense breasts may obscure an underlying neoplasm. False positive reports average 6 to 10%. Patient will receive a letter notifying them of these results.
== END ==
PROVIDERS: PCP Family Medicine; Visit Provider Nurse Practitioner Family
DX: Z12.31 Encounter for screening mammogram for malignant neoplasm of breast (principal); R92.8 Other abnormal and inconclusive findings on diagnostic imaging of breast
CPT/HCPCS: 77063; 77067

== ENCOUNTER 2022-01-05 08:50 | Emergency (ER) | payer MEDICARE, SELFPAY ==
[2022-01-05 08:52] VITALS: BP 131/66; PULSE 70; RESP 18; TEMP 36.6; O2SAT 100
--- NOTE | 2022-01-05 09:03 | ED.GENADUL_ITS ---
Discharge Plan Disposition Patient Disposition: Home Condition: Stable Discharge Details Chief Complaint: Sorethroat Clinical Impression: Pharyngitis Primary Care Provider: Mila Palacio ED Provider: Jose G Chatterjee Home Meds and New Rx's Prescriptions: No Action multivitamin [Daily Multiple] 1 EACH tablet 1 ea PO DAILY lisinopril 10 mg Tablet 10 mg PO DAILY atorvastatin 20 mg Tablet 20 mg PO DAILY calcium carbonate-vitamin D3 [Calcium 600 with Vitamin D3] 600 mg(1,500mg) - 400 unit Capsule 2 tab PO DAILY albuterol sulfate 90 mcg/actuation HFA aerosol inhaler 2 puff inhalation QID PRN (Reason: shortness of breath or wheezing) Qty: 8 0RF Cepacol Sore Throat (marti-men) 15-2.6 mg lozenge 1 gurinder mucous membrane Q2H PRNQty: 16 0RF Discharge Instructions Instructions: Pharyngitis (ED) Additional Instructions: Please have your primary care physician. Continue with ibuprofen and/or acetaminophen at home for pain. Medical Decision Making 76-year-old female presents with several days of sore throat, dry cough, no acute distress tolerating secretions normal voice midline uvula mild erythema to posterior oropharynx without exudate. Likely viral pharyngitis must also consider strep enteritis. No evidence of deep space infection of the head of the neck. Trial of steroids and analgesia with acetaminophen. Home care instructions and return precautions given. Sign Out No HPI General Date/Time Provider Initiated Documentation: 01/05/22 09:02 . HPI Narrative: 76-year-old female presents with several days of sore throat dry cough. Related Data Home Medications Medication Instructions Recorded Confirmed multivitamin (Daily Multiple 1 ea PO DAILY 08/22/17 01/05/22 tablet) calcium carbonate 600 mg-vitamin 2 tab PO DAILY 10/25/17 01/05/22 D3 10 mcg (400 unit) capsule (Calcium 600 with Vitamin D3) lisinopril 10 mg tablet 10 mg PO DAILY 06/09/18 01/05/22 albuterol sulfate 90 mcg/actuation 2 puff inhalation QID PRN 11/22/19 01/05/22 aerosol inhaler shortness of breath or wheezing #8 grams atorvastatin 20 mg tablet 20 mg PO DAILY 12/19/19 01/05/22 benzocaine 15 mg-menthol 2.6 mg 1 gurinder mucous membrane Q2H PRN #16 05/16/20 01/05/22 lozenges (Cepacol Sore Throat ea (benzocaine-menthol)) Previous Rx's Medication Instructions Recorded albuterol sulfate 90 mcg/actuation 2 puff inhalation QID PRN 11/22/19 aerosol inhaler shortness of breath or wheezing #8 grams benzocaine 15 mg-menthol 2.6 mg 1 gurinder mucous membrane Q2H PRN #16 05/16/20 lozenges (Cepacol Sore Throat ea (benzocaine-menthol)) Allergies Allergy/AdvReac Type Severity Reaction Status Date / Time latex Allergy SKIN Unverified 01/05/22 08:55 REACTION CONTACT DERMATITIS aluminum [Aluminum] AdvReac Mild itchy Unverified 01/05/22 08:55 General Stated Complaint: Sorethroat IMELDA: 5 Review of Systems Narrative: Review of Systems Constitutional: negative Eyes: negative ENT: Sore throat Cardiovascular: negative Respiratory: negative Gastrointestinal: negative : negative Musculoskeletal: negative Skin: negative Neurologic: negative Psych: negative PFSH All Active Problems Laryngitis (Acute) Pharyngitis (Acute) Status post cataract extraction and insertion of intraocular lens of right eye (Chronic 07/05/18) Foot fracture (Acute) Fracture of pubic ramus (Acute) Hypertension (Chronic) History of Surgical Procedure (Chronic) a. Right knee replacement and arthroscopy. Status post cataract extraction and insertion of intraocular lens of left eye (Chronic 06/21/18) Medical History Adrenal mass, right stable, followed with CT scan Allergic rhinitis Asthma due to seasonal allergies Eczema Osteoarthritis of right knee Osteopenia Umbilical hernia Surgical History Colonoscopy - IV Sedation 2009 H/O laminectomy Ligation of fallopian tube Repair of umbilical hernia (10/13/15) Replacement of total knee joint right 2007 Tonsillectomy and adenoidectomy Social History Smoking/Tobacco Use Status: Never Smoking risk assessment performed?: Yes Alcohol Intake: never Drug use: Never Substance use type: does not use Do you feel safe at home: Yes Do you feel safe in your relationship?: Yes Exam Narrative Exam Narrative: Physical Examination General: alert, awake, cooperative, resting comfortably, no acute distress HEENT: normocephalic, atraumatic; PERRL, EOM intact, conjunctiva normal; no nasal discharge; moist mucous membranes, mild erythema to posterior oropharynx without exudate, patient has midline uvula tolerating secretions normal voice Neck: supple, trachea midline; full ROM Chest: normal to inspection Respiratory: normal respiratory effort, speaking in full sentences, clear to auscultation, no wheezing, rales or rhonchi Cardiac: regular rate, regular rhythm, S1S2 intact, no murmurs rubs or gallops GI: abdomen soft, non-tender, non-distended; no palpable mass or hepatosplenomegaly Skin: no lesions, rashes or trauma appreciated Neuro: AAOx3, normal speech, moving all extremities Psych: Appropriate mood and affect Course Vital Signs Vital signs: Vital Signs Temperature 36.6 C 01/05/22 08:52 Pulse 70 01/05/22 08:52 Respiratory Rate 18 01/05/22 08:52 Blood Pressure 131/66 01/05/22 08:52 Pulse Oximetry 100 01/05/22 08:52 Temperature 36.6 C 01/05/22 08:52 Temperature Source Temporal Artery Scan 01/05/22 08:52 Pulse 70 01/05/22 08:52 Respiratory Rate 18 01/05/22 08:52 Respiratory Effort Non-Labored 01/05/22 08:54 Blood Pressure 131/66 01/05/22 08:52 Blood Pressure Position Sitting 01/05/22 08:52 Pulse Oximetry 100 01/05/22 08:52 Oxygen Delivery Method Room Air 01/05/22 08:52 Oxygen Flow Rate 0 01/05/22 08:52 Pain Level 5 01/05/22 08:52
[2022-01-05] MEDS: Acetaminophen 325 MG TAB 650 MG PO (09:11)
[2022-01-05] MEDS: Dexamethasone 10 MG/ML VIAL IM (09:11)
== END 2022-01-05 09:12 | disposition home or self-care (01) ==
LOC: ER 09:09
PROVIDERS: Emergency Provider Emergency Medicine; PCP Family Medicine
DX: J02.9 Acute pharyngitis, unspecified (principal)
CPT/HCPCS: 87880; 96372; 99284; 87081; 99283; J1100

== ENCOUNTER 2022-01-08 09:32 | Emergency (ER) | payer MEDICARE, SELFPAY ==
[2022-01-08 09:52] VITALS: BP 103/64; PULSE 85; RESP 18; TEMP 37.2; O2SAT 96
[2022-01-08 10:15] VITALS: RESP 18
--- NOTE | 2022-01-08 10:17 | ED.GENADUL_ITS ---
Discharge Plan Disposition Patient Disposition: Home Condition: Stable Discharge Details Clinical Impression: Acute bronchitis with bronchospasm Primary Care Provider: Mila Palacio ED Provider: Humberto Bass Home Meds and New Rx's Prescriptions: New doxycycline hyclate 100 mg capsule 100 mg PO BID 10 Days Qty: 20 0RF prednisone 50 mg tablet 50 mg PO DAILY 5 Days Qty: 5 0RF guaifenesin [Mucinex] 600 mg tablet extended release 12hr 600 mg PO Q12H PRNQty: 10 0RF Continued multivitamin [Daily Multiple] 1 EACH tablet 1 ea PO DAILY lisinopril 10 mg Tablet 10 mg PO DAILY atorvastatin 20 mg Tablet 20 mg PO DAILY calcium carbonate-vitamin D3 [Calcium 600 with Vitamin D3] 600 mg(1,500mg) - 400 unit Capsule 2 tab PO DAILY albuterol sulfate 90 mcg/actuation HFA aerosol inhaler 2 puff inhalation QID PRN (Reason: shortness of breath or wheezing) Qty: 8 0RF Cepacol Sore Throat (marti-men) 15-2.6 mg lozenge 1 gurinder mucous membrane Q2H PRNQty: 16 0RF Discharge Instructions Instructions: Acute Bronchitis (ED) Additional Instructions: Please take medications as prescribed. May continue [id number] lozenges. Tea with honey can help to decrease cough as well. You may use your home inhaler. Return to the emergency room for any acute concerns. Please follow-up with regular doctor if not improving in 5 to 6 days time. Medical Decision Making 76-year-old female with history of reactive airway disease presents with approximate 10 days of persistent cough. She had some congestion. She was seen January 05 given dexamethasone and Cepacol lozenges. The cough has persisted and also persistent with some mild expectorant. She is afebrile, well-appearing and oxygenating normally. Mild cough with wheeze noted, otherwise clear on exam. We will treat her with a course of oral prednisone and antibiotic. Will cover for atypical infections. Discussed with her chest imaging should she fail this course of outpatient treatment. She is stable and appropriate for discharge at this time. Sign Out No HPI General Mode of arrival: ambulatory . Date/Time Provider Initiated Documentation: 01/08/22 09:36 . Limitations to Documentation: no limitations . Information obtained by: patient . History of Present Illness described as moderate, Quality is described as dull, and is localized to the chest. Patient reports no radiation. Patient started experiencing this day(s) and it has been intermittent. No relieving factors improve symptom(s), No exacerbating factors reported . Patient notes cough; denies chest pain, fever/chills, shortness of breath and syncope. Patient did receive the following treatments prior to arrival, none Related Data Home Medications Medication Instructions Recorded Confirmed multivitamin (Daily Multiple 1 ea PO DAILY 08/22/17 01/05/22 tablet) calcium carbonate 600 mg-vitamin 2 tab PO DAILY 10/25/17 01/05/22 D3 10 mcg (400 unit) capsule (Calcium 600 with Vitamin D3) lisinopril 10 mg tablet 10 mg PO DAILY 06/09/18 01/05/22 albuterol sulfate 90 mcg/actuation 2 puff inhalation QID PRN 11/22/19 01/05/22 aerosol inhaler shortness of breath or wheezing #8 grams atorvastatin 20 mg tablet 20 mg PO DAILY 12/19/19 01/05/22 benzocaine 15 mg-menthol 2.6 mg 1 gurinder mucous membrane Q2H PRN #16 05/16/20 01/05/22 lozenges (Cepacol Sore Throat ea (benzocaine-menthol)) doxycycline hyclate 100 mg capsule 100 mg PO BID 10 days #20 caps 01/08/22 guaifenesin 600 mg tablet, 600 mg PO Q12H PRN #10 tabs 01/08/22 extended release 12 hr (Mucinex) prednisone 50 mg tablet 50 mg PO DAILY 5 days #5 tabs 01/08/22 Previous Rx's Medication Instructions Recorded albuterol sulfate 90 mcg/actuation 2 puff inhalation QID PRN 11/22/19 aerosol inhaler shortness of breath or wheezing #8 grams benzocaine 15 mg-menthol 2.6 mg 1 ugrinder mucous membrane Q2H PRN #16 05/16/20 lozenges (Cepacol Sore Throat ea (benzocaine-menthol)) doxycycline hyclate 100 mg capsule 100 mg PO BID 10 days #20 caps 01/08/22 guaifenesin 600 mg tablet, 600 mg PO Q12H PRN #10 tabs 01/08/22 extended release 12 hr (Mucinex) prednisone 50 mg tablet 50 mg PO DAILY 5 days #5 tabs 01/08/22 Allergies Allergy/AdvReac Type Severity Reaction Status Date / Time latex Allergy SKIN Unverified 01/05/22 08:55 REACTION CONTACT DERMATITIS aluminum [Aluminum] AdvReac Mild itchy Unverified 01/05/22 08:55 General Stated Complaint: [employer] IMELDA: 4 Review of Systems Narrative: Received dexamethasone on January 05. No fever, no wheezing. Has a working inhaler. Chest pain. 8 systems were reviewed and otherwise negative PFSH All Active Problems Laryngitis (Acute) Pharyngitis (Acute) Acute bronchitis with bronchospasm (Acute) Status post cataract extraction and insertion of intraocular lens of right eye (Chronic 07/05/18) Foot fracture (Acute) Fracture of pubic ramus (Acute) Hypertension (Chronic) History of Surgical Procedure (Chronic) a. Right knee replacement and arthroscopy. Status post cataract extraction and insertion of intraocular lens of left eye (Chronic 06/21/18) Medical History Adrenal mass, right stable, followed with CT scan Allergic rhinitis Asthma due to seasonal allergies Eczema Osteoarthritis of right knee Osteopenia Umbilical hernia Surgical History Colonoscopy - IV Sedation 2009 H/O laminectomy Ligation of fallopian tube Repair of umbilical hernia (10/13/15) Replacement of total knee joint right 2007 Tonsillectomy and adenoidectomy Social History Smoking/Tobacco Use Status: Never Smoking risk assessment performed?: Yes Alcohol Intake: never Drug use: Never Substance use type: does not use Do you feel safe at home: Yes Do you feel safe in your relationship?: Yes Exam Narrative Exam Narrative: GEN: awake, alert, oriented 3. Pleasant, well groomed, interactive. HEAD: Normocephalic, atraumatic ENT: Mucous membranes moist, oropharynx unremarkable, External ear exam unremar kable EYES: PERRL, EOMI NECK: Full ROM, no MILKA, no menigismus CHEST/RESP: Nontender, cough noted and end expiratory wheeze bilaterally with coughing, otherwise clear CARDIOVASCULAR: Irregularly irregular, no murmur, rub gianna. 2+ Rad pulse bilateral ABDOMEN: Soft, nontender, no mass. +Bowel sounds EXT: Full ROM, no edema, no rash Neuro: Grossly normal neurologic exam, conversant, interactive. Psych: Speech fluent, thoughts congruent, affect normal Course Vital Signs Vital signs: Vital Signs Temperature 37.2 C 01/08/22 09:52 Pulse 85 01/08/22 09:52 Respiratory Rate 18 01/08/22 09:52 Blood Pressure 103/64 01/08/22 09:52 Pulse Oximetry 96 01/08/22 09:52 Temperature 37.2 C 01/08/22 09:52 Temperature Source Temporal Artery Scan 01/08/22 09:52 Pulse 85 01/08/22 09:52 Respiratory Rate 18 01/08/22 10:15 Respiratory Effort Non-Labored 01/08/22 10:15 Respiratory Depth Normal 01/08/22 10:15 Respiratory Pattern Normal 01/08/22 10:15 Blood Pressure 103/64 01/08/22 09:52 Blood Pressure Position Sitting 01/08/22 09:52 Pulse Oximetry 96 01/08/22 09:52 Oxygen Delivery Method Room Air 01/08/22 09:52 Oxygen Flow Rate 0 01/08/22 09:52
== END 2022-01-08 11:30 | disposition home or self-care (01) ==
PROVIDERS: Emergency Provider Emergency Medicine; PCP Family Medicine
DX: J20.9 Acute bronchitis, unspecified (principal)
CPT/HCPCS: 99283

== ENCOUNTER 2022-02-27 10:18 | Outpatient (REF) | payer MEDICARE, SELFPAY ==
[2022-02-27 16:06] LABS: ALT 22 U/L (14-59); AST 18 U/L (15-37); Albumin 3.5 g/dL (3.4-5.0); Alkaline Phosphatase 153 U/L (46-116); Anion Gap 6.9 mmol/L (3-11); BUN 19 mg/dL (7-18); Bilirubin, Total 0.5 mg/dL (0.2-1.0); CO2 30.1 mmol/L (21.0-32.0); CREATININE 0.8 mg/dL (0.55-1.02); Calcium 9.4 mg/dL (8.5-10.1); Calculated LDL 81 mg/dL (<100); Chloride 107 mmol/L (98-107); Cholesterol 164 mg/dL (<200); Estimated GFR 76.79 (mL/min/1.73m2); Glucose 95 mg/dL (74-106); HDL Cholesterol 59 mg/dL (40-60); Potassium 4.2 mmol/L (3.5-5.1); Sodium 144 mmol/L (136-145); Total Protein 7.4 g/dL (6.4-8.2); Triglyceride 121 mg/dL (<150)
[2022-02-27 16:48] LABS: Vitamin D 25 Total 40.1 ng/mL (30-100)
== END 2022-02-27 10:19 | disposition home or self-care (01) ==
LOC: NCHCN 10:18
PROVIDERS: PCP Family Medicine; Visit Provider Family Medicine
DX: E78.5 Hyperlipidemia, unspecified (principal); Z00.00 Encounter for general adult medical examination without abnormal findings; I10 Essential (primary) hypertension; M17.11 Unilateral primary osteoarthritis, right knee
CPT/HCPCS: 80053; 80061; 82306

== ENCOUNTER 2022-07-16 20:56 | Emergency (ER) | payer MEDICARE, SELFPAY ==
[2022-07-16 21:03] VITALS: BP 158/80; PULSE 98; RESP 20; TEMP 37.2; O2SAT 94
--- NOTE | 2022-07-16 21:45 | DI.RAD_ITS ---
Exam(s) XR CHEST 2V PA LATERAL EXAM: XR CHEST 2V PA LATERAL CLINICAL HISTORY: fever TECHNIQUE: 2D digital imaging was performed of the chest. Two images were obtained. PA and lateral views were obtained. COMPARISON: CR,XR XR PORTABLE CHEST AP from 05/22/2021 FINDINGS: MEDIASTINUM: Normal. HEART: Normal. PULMONARY VASCULATURE: Normal. LUNGS: Clear. There is hyperinflation of the lungs suggesting underlying COPD. PLEURAL SPACE: No pleural effusion or pneumothorax. BONE:Within normal limits for the patient's age. OTHER FINDINGS:Normal. IMPRESSION: No acute pulmonary findings. DATA REPOSITORY: RADIATION DOSE DELIVERED:
[2022-07-16 22:33] LABS: Abs Immature Grans 0.02 10^3/uL (0.0-0.06); Absolute Basophil Count 0.05 10^3/uL (0.0-0.2); Absolute Eosinophil Count 0.17 10^3/uL (0.0-0.7); Absolute Lymphocyte Count 1.16 10^3/uL (1.2-3.4); Absolute Monocyte Count 0.47 10^3/uL (0.1-0.8); Absolute Neutrophil Count 4.55 10^3/uL (1.2-6.7); Basophils % 0.8; Eosinophils % 2.6; HCT 40.2 % (36.0-46.0); HGB 13.1 g/dL (11.2-15.7); Immature Grans % 0.3; Lymphocytes % 18.1; MCH 29.6 pg (27.0-33.0); MCHC 32.6 % (32.0-36.0); MCV 91 fL (80-95); MPV 9.4 fL (8.0-11.0); Monocytes % 7.3; Neutrophils % 70.9; Platelet Count 198 10^3/uL (130-400); RBC 4.42 10^6/uL (3.93-5.22); RDW 14.1 % (11.7-14.6); RDW-SD 47.8 fL; WBC 6.42 10^3/uL (4.4-10.8)
[2022-07-16 22:48] LABS: ALT 96 U/L (14-59); AST 105 U/L (15-37); Albumin 3.6 g/dL (3.4-5.0); Alkaline Phosphatase 184 U/L (46-116); Anion Gap 6.1 mmol/L (3-11); BUN 25 mg/dL (7-18); Bilirubin, Total 0.4 mg/dL (0.2-1.0); CO2 28.9 mmol/L (21.0-32.0); CREATININE 0.9 mg/dL (0.55-1.02); Calcium 9.3 mg/dL (8.5-10.1); Chloride 104 mmol/L (98-107); Estimated GFR 66.67 (mL/min/1.73m2); Glucose 102 mg/dL (74-106); Potassium 4.1 mmol/L (3.5-5.1); Sodium 139 mmol/L (136-145); Total Protein 7.7 g/dL (6.4-8.2)
[2022-07-16 22:53] LABS: Bilirubin Negative (Negative); Blood Trace-intact (Negative); Clarity Clear (Clear); Glucose Negative (Negative); Ketones Negative (Negative); Leukocyte Esterase Negative (Negative); Nitrite Negative (Negative)
[2022-07-16 22:59] LABS: Bacteria Rare HPF (Negative); C & S Indicated? No; Casts Negative LPF (Negative); Crystals Negative HPF (Negative); Epithelial Cells Rare HPF (Negative); Mucus Negative (Negative); WBC Negative HPF (0-5)
--- NOTE | 2022-07-16 23:19 | ED.GENADUL_ITS ---
Discharge Plan Disposition Patient Disposition: Home Discharge Details Clinical Impression: Fever, Elevated transaminase level Primary Care Provider: Mila Palacio ED Provider: Su Fishman Home Meds and New Rx's Prescriptions: New doxycycline hyclate 100 mg capsule 100 mg PO BID Qty: 20 0RF Continued multivitamin [Daily Multiple] 1 EACH tablet 1 ea PO DAILY acetylcysteine [NAC] 600 mg capsule 1,200 mg PO BID albuterol sulfate [Ventolin HFA] 90 mcg/actuation HFA aerosol inhaler 2 puff inhalation Q6H PRN lisinopril 10 mg Tablet 10 mg PO DAILY atorvastatin 20 mg Tablet 20 mg PO DAILY guaifenesin [Mucinex] 600 mg tablet extended release 12hr 600 mg PO Q12H PRNQty: 10 0RF calcium carbonate-vitamin D3 [Calcium 600 with Vitamin D3] 600 mg(1,500mg) - 400 unit Capsule 2 tab PO DAILY albuterol sulfate 90 mcg/actuation HFA aerosol inhaler 2 puff inhalation QID PRN (Reason: shortness of breath or wheezing) Qty: 8 0RF Discharge Instructions Instructions: Fever in Adults (ED) Additional Instructions: Take doxycycline twice daily for the next 10 days with yogurt This will make you sensitive to the sun, use caution Please be reevaluated in 48 hours with your primary care physician return to the emergency department should you develop weakness, uncontrolled fever, or should you have new or worsening complaints Referrals: Mila Palacio [Primary Care Provider] - 2 days Discharge Data Discharge Date/Time-TO BE ENTERED AT DEPARTURE: 07/16/22 23:28 Medical Decision Making Clinically well-appearing 77-year-old female presents with reported temp of 101 at home with recent tick bite She endorses some tiredness but otherwise is feeling improved at this time Denies any nausea or vomiting. Denies any abdominal pain or headache. Patient is alert, oriented, ambulatory, chest x-ray does not show evidence of acute abnormality Will start on doxycycline empirically Considered sepsis, pneumonia, urinary tract infection, erythema migrans, Lyme disease Urine does not show evidence of acute infection Chest x-ray no evidence of infiltrate, patient ambulatory and well in appearance We will start on doxycycline empirically as patient had recent tick bite and has fever Pending Lyme titer and blood cultures at this time, discharged home in stable condition with stable vitals, fully alert and oriented and ambulatory with steady gait HPI General Date/Time Provider Initiated Documentation: 07/16/22 21:42 . HPI Narrative: This 77-year-old female presents with report of temp of 101. Today and feeling lightheaded. She denies any additional complaints of back she is feeling improvement at this time. She does states she was bitten by a tick on . She denies any rash around this. She denies any chest pain or shortness of breath. She denies any dizziness or weakness. Denies history of diabetes. Related Data Home Medications Medication Instructions Recorded Confirmed multivitamin (Daily Multiple 1 ea PO DAILY 08/22/17 07/16/22 tablet) calcium carbonate 600 mg-vitamin 2 tab PO DAILY 10/25/17 07/16/22 D3 10 mcg (400 unit) capsule (Calcium 600 with Vitamin D3) lisinopril 10 mg tablet 10 mg PO DAILY 06/09/18 07/16/22 albuterol sulfate 90 mcg/actuation 2 puff inhalation QID PRN 11/22/19 07/16/22 aerosol inhaler shortness of breath or wheezing #8 grams atorvastatin 20 mg tablet 20 mg PO DAILY 12/19/19 07/16/22 guaifenesin 600 mg tablet, 600 mg PO Q12H PRN #10 tabs 01/08/22 07/16/22 extended release 12 hr (Mucinex) acetylcysteine 600 mg capsule (NAC) 1,200 mg PO BID 01/12/22 07/16/22 albuterol sulfate 90 mcg/actuation 2 puff inhalation Q6H PRN 01/12/22 07/16/22 aerosol inhaler (Ventolin HFA) doxycycline hyclate 100 mg capsule 100 mg PO BID #20 caps 07/16/22 Previous Rx's Medication Instructions Recorded albuterol sulfate 90 mcg/actuation 2 puff inhalation QID PRN 11/22/19 aerosol inhaler shortness of breath or wheezing #8 grams guaifenesin 600 mg tablet, 600 mg PO Q12H PRN #10 tabs 01/08/22 extended release 12 hr (Mucinex) doxycycline hyclate 100 mg capsule 100 mg PO BID #20 caps 07/16/22 Allergies Allergy/AdvReac Type Severity Reaction Status Date / Time latex Allergy SKIN Unverified 01/05/22 08:55 REACTION CONTACT DERMATITIS aluminum [Aluminum] AdvReac Mild itchy Unverified 01/05/22 08:55 General Stated Complaint: Fever IMELDA: 3 PFSH All Active Problems Fever (Acute) Elevated transaminase level (Acute) Anxiety (Chronic) Laryngitis (Acute) Status post cataract extraction and insertion of intraocular lens of right eye (Chronic 07/05/18) Foot fracture (Acute) Fracture of pubic ramus (Acute) Hypertension (Chronic) History of Surgical Procedure (Chronic) a. Right knee replacement and arthroscopy. Status post cataract extraction and insertion of intraocular lens of left eye (Chronic 06/21/18) Medical History (Updated 07/16/22 @ 23:13 by JULISA Hughes) Adrenal mass, right stable, followed with CT scan Allergic rhinitis Asthma due to seasonal allergies Eczema Osteoarthritis of right knee Osteopenia Postmenopausal bleeding Umbilical hernia Surgical History Colonoscopy - IV Sedation 2009 H/O laminectomy Ligation of fallopian tube Repair of umbilical hernia (10/13/15) Replacement of total knee joint right 2007 Tonsillectomy and adenoidectomy Social History Smoking/Tobacco Use Status: Never Smoking risk assessment performed?: Yes Alcohol Intake: never Drug use: Never Substance use type: does not use Do you feel safe at home: Yes Do you feel safe in your relationship?: Yes Exam Narrative Exam Narrative: Calm and cooperative, no acute distress, pupils equal round reactive to light and accommodation, no meningismus, lungs clear to auscultation, cardiac rate rhythm regular, no abdominal tenderness, alert and oriented x4 Course Vital Signs Vital signs: Vital Signs Temperature 37.2 C 07/16/22 21:03 Pulse 98 H 07/16/22 21:03 Respiratory Rate 20 07/16/22 21:03 Blood Pressure 158/80 H 07/16/22 21:03 Pulse Oximetry 94 07/16/22 21:03 Temperature 37.2 C 07/16/22 21:03 Temperature Source Oral 07/16/22 21:03 Pulse 98 H 07/16/22 21:03 Respiratory Rate 20 07/16/22 21:03 Respiratory Effort Normal 07/16/22 22:24 Blood Pressure 158/80 H 07/16/22 21:03 Blood Pressure Position Sitting 07/16/22 21:03 Pulse Oximetry 94 07/16/22 21:03 Oxygen Delivery Method Room Air 07/16/22 21:03 Oxygen Flow Rate 0 07/16/22 21:03 Lab/Test Results Lab/Test Results: 07/16/22 22:18 Blood Blood Culture - Pending 07/16/22 22:09 Blood Blood Culture - Pending Laboratory Tests Range/Units 07/16/22 07/16/22 07/16/22 22:09 22:09 22:42 WBC (4.4-10.8) 10^3/uL 6.42 RBC (3.93-5.22) 10^6/uL 4.42 Hgb (11.2-15.7) g/dL 13.1 Hct (36.0-46.0) % 40.2 MCV (80-95) fL 91 MCH (27.0-33.0) pg 29.6 MCHC (32.0-36.0) % 32.6 RDW (11.7-14.6) % 14.1 Plt Count (130-400) 10^3/uL 198 MPV (8.0-11.0) fL 9.4 Immature Gran % 0.3 Neutrophils % 70.9 Lymphocytes % 18.1 Monocytes % 7.3 Eosinophils % 2.6 Basophils % 0.8 Nucleated RBC % (0.0-0.3) % 0.0 Absolute Neutrophils (1.2-6.7) 10^3/uL 4.55 Absolute Lymphocytes (1.2-3.4) 10^3/uL 1.16 L Absolute Monocytes (0.1-0.8) 10^3/uL 0.47 Absolute Eosinophils (0.0-0.7) 10^3/uL 0.17 Absolute Basophils (0.0-0.2) 10^3/uL 0.05 Sodium (136-145) mmol/L 139 Potassium (3.5-5.1) mmol/L 4.1 Chloride (98-107) mmol/L 104 Carbon Dioxide (21.0-32.0) mmol/L 28.9 Anion Gap (3-11) mmol/L 6.1 BUN (7-18) mg/dL 25 H Creatinine (0.55-1.02) mg/dL 0.9 Est GFR (CKD-EPI 2020) (mL/min/1.73m2) 66.67 Glucose (74-106) mg/dL 102 Calcium (8.5-10.1) mg/dL 9.3 Total Bilirubin (0.2-1.0) mg/dL 0.4 AST (15-37) U/L 105 H ALT (14-59) U/L 96 H Alkaline Phosphatase (46-116) U/L 184 H Total Protein (6.4-8.2) g/dL 7.7 Albumin (3.4-5.0) g/dL 3.6 Urine Color (Yellow) Yellow Urine Clarity (Clear) Clear Urine pH (5-8) 6.0 Ur Specific [place] (1.005-1.025) 1.020 Urine Protein (Negative) mg/dL Negative Urine Ketones (Negative) mg/dL Negative Urine Blood (Negative) Trace-intact H Urine Nitrite (Negative) Negative Urine Bilirubin (Negative) Negative Urine Urobilinogen (Up to 0.2) mg/dL 2.0 H Ur Leukocyte Esterase (Negative) Negative Urine RBC (0-2) HPF 10-20 H Urine WBC (0-5) HPF Negative Ur Epithelial Cells (Negative) HPF Rare Urine Crystals (Negative) HPF Negative Urine Bacteria (Negative) HPF Rare Urine Casts (Negative) LPF Negative Urine Mucus (Negative) Negative Ur Culture Indicated? No Urine Glucose (Negative) mg/dL Negative
--- NOTE | 2022-07-16 23:21 | DI.VRAD_ITS ---
PROCEDURE INFORMATION: Exam: XR Chest Exam date and time: 07/16/2022 10:52 PM Age: 77 years old Clinical indication: Fever TECHNIQUE: Imaging protocol: Radiologic exam of the chest. Views: 2 views. COMPARISON: CR XR PORTABLE CHEST AP 05/22/2021 12:00 PM FINDINGS: Lungs: Bilateral mild hyperinflation which could reflect underlying emphysema or COPD. This is similar to previous study 05/22/2021. No acute infiltrates. No edema. Pleural spaces: No pleural effusion. Heart/Mediastinum: Normal heart size. Bones/joints: Degenerative thoracic spine changes. IMPRESSION: 1. Hyperinflation suggesting underlying COPD or emphysema. Stable since 05/22/2021. 2. No acute infiltrates or edema. No acute pleural changes. Dictated and Authenticated by: Nickolas Giles MD. Ordering:ENRICO Blue MD
[2022-07-16] MEDS: Doxycycline Hyclate 100 MG, 2 CAPS/BTL PO (23:26)
[2022-07-18 10:39] LABS: Lyme Ab w Rflx to Lyme Confirm Negative (Negative)
[2022-07-19 21:30] LABS: B. miyamotoi PCR Negative (Negative); Babesia divergens/MO-1 Negative (Negative); Babesia duncani Negative (Negative); Babesia microti Negative (Negative); Ehrlichia chaffeensis Negative (Negative); Ehrlichia ewingii/canis Negative (Negative); Ehrlichia muris eauclairensis Negative (Negative)
[2022-07-20 08:36] LABS: Anaplasma phagocytophilum Positive (Negative)
--- NOTE | 2022-07-20 09:00 | W.ED.FU ---
Date of service: 07/20/22 Time of Service: 09:01 Follow Up Plan: Patient positive for anaplasmosis. Upon review of chart patient was discharged on appropriate antibiotics 10 days of doxycycline. Contact patient, currently she is feeling much better after starting her antibiotics. Counseled patient regarding her diagnosis and encouraged her to return to the emergency department for further evaluation if she has any worsening symptoms.
== END 2022-07-16 23:28 | disposition home or self-care (01) ==
PROVIDERS: Emergency Provider Physician Assistant; PCP Family Medicine
DX: R50.9 Fever, unspecified (principal); R74.01 Elevation of levels of liver transaminase levels; A79.82 Anaplasmosis [A. phagocytophilum]
CPT/HCPCS: 36415; 80053; 87040; 87798; 99283; 71046; 81003; 81015; 85025; 86618; 99284